=== PATIENT | female | born 1945 | race Caucasian/White ===

== ENCOUNTER → 2016-12-08 09:32 | Day surgery (SDC) | payer MEDICARE, OTHER ==
[~2016-12-08 09:32] MED LIST: Bacitracin OINTMENT* 0.5% 0.5 oz TUBE ONE; Buffered Lidocaine 1% SYR 3ML* 3 ML/SYR SYRINGE INTRADERM ONE; DiMENhydriNATE IV* 50 MG/ML VIAL IV PUSH PRN; HYDROcodone/ACETAMIN 5-325 MG* 1 TAB ONE; HYDROcodone/ACETAMIN 5-325 MG* 1 TAB PO PRN; HYDROmorphone INJ* 1 MG/ML CARPUJECT SYRINGE IV PRN; Lidocain 1% EPI 1:100,000 * 30 ML MDV ONE; Midazolam* 1 MG/ML 5 ML VIAL (5 MG) ONE; Ondansetron INJ* 2 MG/ML VIAL IV PRN; Propofol* 10 MG/ML 20 ML BTL IV PUSH ONE; ceFAZolin 2 GM PREMIX (*) 2 GM/50 ML BAG IVPB ONE; fentaNYL* 50 MCG/ML 2 ML VIAL (100 MCG VIAL) IV PRN; fentaNYL* 50 MCG/ML 2 ML VIAL (100 MCG VIAL) ONE; oxyCODONE TAB* 5 MG TAB PO PRN
[2016-12-08 13:17] VITALS: BP 131/44
== END | disposition home or self-care (01) ==
LOC: OREAST 09:32
PROVIDERS: ATTEND Plastic Surgery
DX: Z41.1 Encounter for cosmetic surgery (principal); I10 Essential (primary) hypertension; Z87.891 Personal history of nicotine dependence
CPT/HCPCS: A9270-GY; J0690; J2250; J2704; J3010

== ENCOUNTER 2017-06-01 06:27 | Day surgery (SDC) | payer MEDICARE ==
[~2017-06-01 06:27] MED LIST changes: -Bacitracin OINTMENT* 0.5% 0.5 oz TUBE ONE; +Buffered Lidocaine 0.9% SYRIN* 5 ML/SYR SYRINGE INTRADERM ONE; -Buffered Lidocaine 1% SYR 3ML* 3 ML/SYR SYRINGE INTRADERM ONE; -DiMENhydriNATE IV* 50 MG/ML VIAL IV PUSH PRN; -HYDROcodone/ACETAMIN 5-325 MG* 1 TAB ONE; -HYDROcodone/ACETAMIN 5-325 MG* 1 TAB PO PRN; -HYDROmorphone INJ* 1 MG/ML CARPUJECT SYRINGE IV PRN; -Lidocain 1% EPI 1:100,000 * 30 ML MDV ONE; -Midazolam* 1 MG/ML 5 ML VIAL (5 MG) ONE; -Ondansetron INJ* 2 MG/ML VIAL IV PRN; -Propofol* 10 MG/ML 20 ML BTL IV PUSH ONE; -ceFAZolin 2 GM PREMIX (*) 2 GM/50 ML BAG IVPB ONE; -fentaNYL* 50 MCG/ML 2 ML VIAL (100 MCG VIAL) IV PRN; -fentaNYL* 50 MCG/ML 2 ML VIAL (100 MCG VIAL) ONE; -oxyCODONE TAB* 5 MG TAB PO PRN
[2017-06-01] MEDS ORDERED: Ondansetron INJ* 2 MG/ML VIAL ONE (06:28)
[2017-06-01] MEDS ORDERED: Dexamethasone IV* 4 MG/ML 1 ML (4 MG) ONE (06:28)
[2017-06-01] MEDS ORDERED: ceFAZolin 2 GM PREMIX (*) 50 ML BAG (BBraun bag) IVPB ONE (06:29)
[2017-06-01] MEDS ORDERED: EPINEPHrine AMP 1 MG/ML ONE (07:19)
[2017-06-01] MEDS ORDERED: Lidocaine 2% PF* 10 ML AMP ONE (07:19)
[2017-06-01] MEDS ORDERED: Sodium Bicarbonate 8.4%* 50 ML SYRINGE ONE (07:19)
[2017-06-01] MEDS ORDERED: Lidocaine 1.5% EPI 1:200,000* 30 ML SDV ONE (07:26)
[2017-06-01] MEDS ORDERED: Midazolam* 1 MG/ML 5 ML VIAL (5 MG) ONE (07:43)
[2017-06-01] MEDS ORDERED: fentaNYL* 50 MCG/ML 2 ML VIAL (100 MCG VIAL) ONE (07:43)
[2017-06-01] MEDS ORDERED: Propofol* 10 MG/ML 20 ML BTL IV PUSH ONE ×2 (08:09→08:10)
[2017-06-01] MEDS ORDERED: Acetaminophen TAB* 325 MG PO PRN (08:24)
[2017-06-01] MEDS ORDERED: Ibuprofen TAB* 400 MG PO PRN (08:24)
[2017-06-01] MEDS ORDERED: BSS OPTH.SOL* BTL ONE (09:16)
[2017-06-01] MEDS ORDERED: HYDROcodone/ACETAMIN 5-325 MG* 1 TAB ONE (09:32)
[2017-06-01 09:45] VITALS: BP 154/71
== END 2017-06-01 09:52 | disposition home or self-care (01) ==
LOC: OREAST 06:27
PROVIDERS: ATTEND Plastic Surgery
DX: H02.403 Unspecified ptosis of bilateral eyelids (principal); I10 Essential (primary) hypertension; K21.9 Gastro-esophageal reflux disease without esophagitis; Z87.891 Personal history of nicotine dependence; M81.0 Age-related osteoporosis without current pathological fracture
CPT/HCPCS: A9270-GY; J0171; J0690; J1100; J2001; J2250; J2405; J2704; J3010

== ENCOUNTER 2020-08-29 12:29 | Inpatient (IN) ==
[2020-08-29] MEDS ORDERED: NS 0.9% 1000 ml BAG 1,000 ML IV ONE ×2 (12:51→14:29)
[2020-08-29 14:24] LABS: ABS Basophils 0.1 10^3/ul (0-0.2); ABS Lymphocytes 1.1 10^3/ul (1.0-4.8); ABS Monocytes 1.5 10^3/ul (0-0.8); ABS Neutrophils 14.5 10^3/ul (1.5-7.7); Eosinophil % 0.2 %; Hematocrit 43 % (35-47); Hemoglobin 13.9 g/dL (12.0-16.0); Lymphocyte % 6.2 %; Mean Corpuscular HGB Conc 33 g/dL (31-36); Mean Corpuscular Hemoglobin 30 pg (27-31); Mean Corpuscular Volume 90 fL (80-97); Mean Platelet Volume 8.4 fL (7.4-10.4); Platelet Count 457 10^3/uL (150-450); Red Blood Count 4.71 10^6 /uL (3.70-4.87); Red Cell Distribution Width 15 % (10-15); White Blood Count 17.2 10^3/uL (3.5-10.8)
[2020-08-29] MEDS ORDERED: cefTRIAXone 1 gm/50 mL NS BAG 1 GM/50 ML BAG IV ONE (14:29)
[2020-08-29 14:42] LABS: ALT 31 U/L (7-52); AST 53 U/L (13-39); Albumin 4.8 g/dL (3.2-5.2); Albumin/Globulin Ratio 1.7 (1-3); Alcohol, S < 10 mg/dL (<10); Alkaline Phosphatase 118 U/L (34-104); Anion Gap 12 mmol/L (2-11); BUN/Creatinine Ratio 34.2 (8-20); Blood Urea Nitrogen 41 mg/dL (6-24); CO2 Carbon Dioxide 21 mmol/L (22-32); Calcium 10.2 mg/dL (8.6-10.3); Chloride 107 mmol/L (101-111); Creatine Kinase 1072 U/L (10-223); EGFR Non-African American 43.8 (>60); Globulin 2.8 g/dL (2-4); Glucose 107 mg/dL (70-100); Magnesium 2.4 mg/dL (1.9-2.7); Potassium 4.5 mmol/L (3.5-5.0); Sodium 140 mmol/L (135-145); Total Protein 7.6 g/dL (6.4-8.9)
[2020-08-29 14:55] LABS: Troponin I 0.46 ng/mL (<0.03)
[2020-08-29 14:56] LABS: TSH Ultra Thyroid Stim Horm 0.18 mcIU/mL (0.34-5.60)
[2020-08-29 17:16] LABS: Urine Appearance Clear; Urine Bilirubin Negative (Negative); Urine Blood 1+ (Negative); Urine Color Yellow; Urine Glucose Negative (Negative); Urine Ketones Trace (Negative); Urine Nitrite Negative (Negative); Urine Protein 1+(30 mg/dL) (Negative); Urine Specific Gravity 1.011 (1.010-1.030); Urine Urobilinogen Negative (Negative)
[2020-08-29 17:21] LABS: Urine Bacteria Absent (Absent); Urine Red Blood Cell Trace(0-2/hpf) (Absent); Urine White Blood Cell Absent (Absent)
[2020-08-29 18:16] LABS: Troponin I 0.69 ng/mL (<0.03)
[2020-08-29] MEDS ORDERED: Lidocaine 1% MPF 5 ML VIAL INJ ONE (19:36)
[2020-08-29] MEDS ORDERED: Lidocaine 1% VIAL 10 MG/ML VIAL ONE (19:47)
[2020-08-29 21:42] LABS: Body Fluid Source Cerebral Spinal
[2020-08-29 21:55] LABS: CSF Glucose 73 mg/dL (40-70)
[2020-08-29] MEDS ORDERED: Heparin 5000 UNITS/ML 1 mL VIAL SUBCUT SCH (22:00)
[2020-08-29 22:58] LABS: Body Fluid Mono 48 %
[2020-08-29 23:40] LABS: Troponin I 0.52 ng/mL (<0.03)
[2020-08-30 00:02] LABS: Hepatitis B Surface Antigen Nonreactive (Nonreactive)
[2020-08-30 00:07] LABS: Hepatitis A Ab IgM Negative (Negative)
[2020-08-30 00:08] LABS: Hepatitis B Core IgM Nonreactive (Nonreactive)
[2020-08-30 00:20] LABS: Hepatitis C Antibody Negative (Negative)
[2020-08-30] MEDS: Acyclovir IV 540 MG in NS 0.9% 100 ml BAG 100 ML IVPB SCH ×2 (00:26→08:40)
[2020-08-30] MEDS: NS 0.9% 1000 ml BAG 1,000 ML IV SCH ×2 (00:31→08:42)
[2020-08-30 03:22] LABS: ABS Basophils 0.1 10^3/ul (0-0.2); ABS Lymphocytes 1.2 10^3/ul (1.0-4.8); ABS Monocytes 0.8 10^3/ul (0-0.8); ABS Neutrophils 9.1 10^3/ul (1.5-7.7); Eosinophil % 0.1 %; Hematocrit 33 % (35-47); Lymphocyte % 10.4 %; Mean Corpuscular HGB Conc 33 g/dL (31-36); Mean Corpuscular Hemoglobin 30 pg (27-31); Mean Corpuscular Volume 90 fL (80-97); Mean Platelet Volume 8.2 fL (7.4-10.4); Platelet Count 346 10^3/uL (150-450); Red Cell Distribution Width 15 % (10-15); White Blood Count 11.2 10^3/uL (3.5-10.8)
[2020-08-30 03:39] LABS: ALT 32 U/L (7-52); AST 53 U/L (13-39); Albumin 3.9 g/dL (3.2-5.2); Albumin/Globulin Ratio 1.7 (1-3); Alkaline Phosphatase 95 U/L (34-104); Anion Gap 6 mmol/L (2-11); Blood Urea Nitrogen 32 mg/dL (6-24); CO2 Carbon Dioxide 24 mmol/L (22-32); Calcium 8.6 mg/dL (8.6-10.3); Chloride 109 mmol/L (101-111); Creatine Kinase 831 U/L (10-223); EGFR African American 70.2 (>60); EGFR Non-African American 58.1 (>60); Globulin 2.3 g/dL (2-4); Glucose 124 mg/dL (70-100); Indirect Bilirubin 0.3 mg/dL (0.3-1.0); Potassium 3.4 mmol/L (3.5-5.0); Sodium 139 mmol/L (135-145); Total Protein 6.2 g/dL (6.4-8.9)
[2020-08-30 03:45] LABS: Troponin I 0.42 ng/mL (<0.03)
[2020-08-30 05:35] LABS: Urine Appearance Clear; Urine Bilirubin Negative (Negative); Urine Blood Negative (Negative); Urine Color Yellow; Urine Glucose Negative (Negative); Urine Ketones Negative (Negative); Urine Nitrite Negative (Negative); Urine Protein Negative (Negative); Urine Specific Gravity 1.012 (1.010-1.030); Urine Urobilinogen Negative (Negative)
[2020-08-30 05:44] LABS: Urine Bacteria Absent (Absent); Urine Red Blood Cell Trace(0-2/hpf) (Absent); Urine White Blood Cell Trace(0-5/hpf) (Absent)
[2020-08-30 05:54] LABS: Urine Benzodiazepine Screen None Detected (None Detect); Urine Cannabinoids Screen None Detected (None Detect); Urine Opiates Screen None Detected (None Detect)
[2020-08-30 09:05] LABS: C Reactive Protein 12.86 mg/L (<8.01)
[2020-08-30 09:32] LABS: Folate 16.14 ng/mL (>3.99)
[2020-08-30 09:34] LABS: Vitamin B12 448 pg/mL (180-914)
[2020-08-30] MEDS ORDERED: NS 0.9% IVPB SCH (14:15)
[2020-08-30] MEDS ORDERED: ACYCLOVIR IVPB SCH (14:15)
[2020-08-30] MEDS ORDERED: cefTRIAXone 1 gm/50 mL NS BAG 1 GM/50 ML BAG IVPB SCH (16:00)
[2020-08-30 16:06] LABS: Free T4 0.79 ng/dL (0.61-1.12)
[2020-08-30] MEDS ORDERED: NS 0.9% 1000 ml BAG 1,000 ML IV SCH (17:03)
[2020-08-30] MEDS: Enoxaparin 40 MG/0.4 ML SYR SUBCUT SCH (20:10)
[2020-08-30] MEDS: ACYCLOVIR IVPB SCH (20:11)
[2020-08-30] MEDS: NS 0.9% IVPB SCH (20:11)
[2020-08-31 07:06] LABS: Hematocrit 34 % (35-47); Hemoglobin 11.7 g/dL (12.0-16.0); Mean Corpuscular HGB Conc 34 g/dL (31-36); Mean Corpuscular Hemoglobin 31 pg (27-31); Mean Corpuscular Volume 90 fL (80-97); Mean Platelet Volume 8.2 fL (7.4-10.4); Platelet Count 319 10^3/uL (150-450); Red Blood Count 3.84 10^6 /uL (3.70-4.87); Red Cell Distribution Width 15 % (10-15); White Blood Count 8.1 10^3/uL (3.5-10.8)
[2020-08-31 07:25] LABS: BUN/Creatinine Ratio 28.6 (8-20); EGFR African American 88.4 (>60); EGFR Non-African American 73.1 (>60); Magnesium 1.9 mg/dL (1.9-2.7); Potassium 3.2 mmol/L (3.5-5.0)
[2020-08-31] MEDS: NS 0.9% IVPB SCH ×2 (08:31→19:42)
[2020-08-31] MEDS: ACYCLOVIR IVPB SCH ×2 (08:31→19:42)
[2020-08-31] MEDS: cefTRIAXone 2 GM ADDV.VIAL 2 GM in NS 0.9% 100 ml BAG 100 ML IV SCH (16:37)
[2020-08-31] MEDS: Enoxaparin 40 MG/0.4 ML SYR SUBCUT SCH (19:59)
[2020-08-31] MEDS ORDERED: Thiamine 100 MG/ML 2 ml VIAL (200 mg) IV SCH ×2 (21:00)
[2020-09-01] MEDS: Thiamine IV 500 MG in NS 0.9% 250 ML (Wernicke-Korsakoff) IV SCH ×4 (00:45→21:11)
[2020-09-01 07:20] LABS: BUN/Creatinine Ratio 22.1 (8-20); Calcium 8.8 mg/dL (8.6-10.3); EGFR African American 88.4 (>60); EGFR Non-African American 73.1 (>60); Potassium 3.2 mmol/L (3.5-5.0)
[2020-09-01] MEDS: NS 0.9% IVPB SCH ×2 (08:19→19:29)
[2020-09-01] MEDS: ACYCLOVIR IVPB SCH ×2 (08:19→19:29)
[2020-09-01 15:16] LABS: CSF VDRL Negative (Negative)
[2020-09-01] MEDS: cefTRIAXone 2 GM ADDV.VIAL 2 GM in NS 0.9% 100 ml BAG 100 ML IV SCH (17:33)
[2020-09-01] MEDS: Enoxaparin 40 MG/0.4 ML SYR SUBCUT SCH (19:31)
[2020-09-02] MEDS: Thiamine IV 500 MG in NS 0.9% 250 ML (Wernicke-Korsakoff) IV SCH ×3 (05:22→22:18)
[2020-09-02 08:03] LABS: BUN/Creatinine Ratio 22.1 (8-20); Calcium 8.8 mg/dL (8.6-10.3); EGFR African American 102.1 (>60); EGFR Non-African American 84.4 (>60); Potassium 3.1 mmol/L (3.5-5.0)
[2020-09-02] MEDS: NS 0.9% IVPB SCH ×2 (08:23→19:55)
[2020-09-02] MEDS: ACYCLOVIR IVPB SCH ×2 (08:23→19:55)
[2020-09-02] MEDS: KCL 20 MEQ/100 ML IVPREMIX 20 MEQ/100 ML BAG IV SCH ×2 (10:39→13:04)
[2020-09-02 13:45] LABS: HSV 1 PCR, CSF Negative (Negative); HSV 2 PCR, CSF Negative (Negative)
[2020-09-02] MEDS: cefTRIAXone 2 GM ADDV.VIAL 2 GM in NS 0.9% 100 ml BAG 100 ML IV SCH (15:59)
[2020-09-02] MEDS: Enoxaparin 40 MG/0.4 ML SYR SUBCUT SCH (20:01)
[2020-09-03 07:20] LABS: BUN/Creatinine Ratio 20.9 (8-20); Calcium 9.5 mg/dL (8.6-10.3); EGFR African American 103.8 (>60); EGFR Non-African American 85.8 (>60); Potassium 3.3 mmol/L (3.5-5.0)
[2020-09-03] MEDS ORDERED: Potassium Chlor 20 meq TAB.ER PO ONE (08:00)
[2020-09-03] MEDS: ACYCLOVIR IVPB SCH ×2 (09:11→20:28)
[2020-09-03] MEDS: NS 0.9% IVPB SCH ×2 (09:11→20:28)
[2020-09-03] MEDS: cefTRIAXone 2 GM ADDV.VIAL 2 GM in NS 0.9% 100 ml BAG 100 ML IV SCH (15:36)
[2020-09-03] MEDS: Enoxaparin 40 MG/0.4 ML SYR SUBCUT SCH (20:28)
[2020-09-04] MEDS ORDERED: Ondansetron ODT 4 mg TAB 4 MG TAB SL PRN (00:48)
[2020-09-04 06:14] LABS: ABS Eosinophils 0.1 10^3/ul (0-0.6); ABS Lymphocytes 1.2 10^3/ul (1.0-4.8); ABS Monocytes 0.4 10^3/ul (0-0.8); ABS Neutrophils 5.5 10^3/ul (1.5-7.7); Eosinophil % 1.2 %; Hematocrit 35 % (35-47); Hemoglobin 11.9 g/dL (12.0-16.0); Lymphocyte % 16.2 %; Mean Corpuscular HGB Conc 34 g/dL (31-36); Mean Corpuscular Hemoglobin 30 pg (27-31); Mean Corpuscular Volume 90 fL (80-97); Mean Platelet Volume 8.1 fL (7.4-10.4); Platelet Count 371 10^3/uL (150-450); Red Blood Count 3.95 10^6 /uL (3.70-4.87); Red Cell Distribution Width 14 % (10-15); White Blood Count 7.2 10^3/uL (3.5-10.8)
[2020-09-04 06:38] LABS: BUN/Creatinine Ratio 23.5 (8-20); Calcium 9.8 mg/dL (8.6-10.3); EGFR African American 78.9 (>60); EGFR Non-African American 65.2 (>60); Potassium 3.5 mmol/L (3.5-5.0)
[2020-09-04] MEDS: ACYCLOVIR IVPB SCH ×2 (09:49→20:53)
[2020-09-04] MEDS: NS 0.9% IVPB SCH ×2 (09:49→20:53)
[2020-09-04] MEDS: cefTRIAXone 2 GM ADDV.VIAL 2 GM in NS 0.9% 100 ml BAG 100 ML IV SCH (16:00)
[2020-09-04] MEDS: Enoxaparin 40 MG/0.4 ML SYR SUBCUT SCH (20:53)
[2020-09-05 08:08] LABS: Free T3 3.2 pg/mL (2.5-3.9)
[2020-09-05] MEDS: cefTRIAXone 2 GM ADDV.VIAL 2 GM in NS 0.9% 100 ml BAG 100 ML IV SCH (15:58)
[2020-09-05] MEDS: Enoxaparin 40 MG/0.4 ML SYR SUBCUT SCH (19:53)
[2020-09-06 07:02] LABS: BUN/Creatinine Ratio 26.3 (8-20); Calcium 9.3 mg/dL (8.6-10.3); EGFR African American 84.6 (>60); EGFR Non-African American 69.9 (>60); Potassium 4.1 mmol/L (3.5-5.0)
[2020-09-06] MEDS: Enoxaparin 40 MG/0.4 ML SYR SUBCUT SCH (20:08)
[2020-09-07 16:06] VITALS: BP 155/58
== END 2020-09-07 16:05 | disposition home or self-care (01) | DRG 92 ==
LOC: ED 12:29 → MEDTELE 17:21
PROVIDERS: ADMIT Internal Medicine; ATTEND Internal Medicine

== ENCOUNTER 2021-02-02 19:28 | Inpatient (IN) ==
[2021-02-02] MEDS ORDERED: NS 0.9% 1000 ml BAG 1,000 ML IV ONE (20:08)
[2021-02-02 20:45] LABS: ABS Basophils 0.1 10^3/ul (0-0.2); ABS Eosinophils 0.1 10^3/ul (0-0.6); ABS Lymphocytes 1.3 10^3/ul (1.0-4.8); ABS Monocytes 0.7 10^3/ul (0-0.8); ABS Neutrophils 6.8 10^3/ul (1.5-7.7); Eosinophil % 0.8 %; Hematocrit 35 % (35-47); Hemoglobin 11.8 g/dL (12.0-16.0); Lymphocyte % 14.7 %; Mean Corpuscular HGB Conc 34 g/dL (31-36); Mean Corpuscular Hemoglobin 29 pg (27-31); Mean Corpuscular Volume 85 fL (80-97); Mean Platelet Volume 7.5 fL (7.4-10.4); Platelet Count 417 10^3/uL (150-450); Red Cell Distribution Width 14 % (10-15)
[2021-02-02 21:04] LABS: Troponin I 0.01 ng/mL (<0.03)
[2021-02-02 21:23] LABS: ALT 22 U/L (7-52); AST 27 U/L (13-39); Albumin 4.7 g/dL (3.2-5.2); Albumin/Globulin Ratio 1.9 (1-3); Alkaline Phosphatase 93 U/L (34-104); Anion Gap 10 mmol/L (2-11); BUN/Creatinine Ratio 29.7 (8-20); Blood Urea Nitrogen 58 mg/dL (6-24); CO2 Carbon Dioxide 20 mmol/L (22-32); Chloride 104 mmol/L (101-111); Creatine Kinase 167 U/L (10-223); EGFR African American 30.2 (>60); EGFR Non-African American 24.9 (>60); Globulin 2.5 g/dL (2-4); Glucose 123 mg/dL (70-100); Potassium 3.9 mmol/L (3.5-5.0); Sodium 134 mmol/L (135-145); Total Protein 7.2 g/dL (6.4-8.9)
[2021-02-02 21:25] LABS: Acetaminophen < 15 mcg/mL; Alcohol, S < 10 mg/dL (<10); Salicylate < 2.50 mg/dL (<30)
[2021-02-02 22:04] LABS: Urine Appearance Clear; Urine Bilirubin Negative (Negative); Urine Blood Negative (Negative); Urine Color Yellow; Urine Glucose Negative (Negative); Urine Ketones Negative (Negative); Urine Nitrite Negative (Negative); Urine Protein Negative (Negative); Urine Specific Gravity 1.011 (1.002-1.030); Urine Urobilinogen Negative (Negative)
[2021-02-02 22:13] LABS: Urine Bacteria Absent (Absent); Urine Red Blood Cell Trace(0-2/hpf) (Absent); Urine Squamous Epithelial Cell Present (Absent); Urine White Blood Cell Trace(0-5/hpf) (Absent)
[2021-02-03 00:35] LABS: Erythrocyte Sed Rate 31 mm/Hr (0-29)
[2021-02-03 07:01] LABS: Urine Creatinine Concentration 58.47 mg/dL
[2021-02-03 07:03] LABS: Urine Benzodiazepine Screen None Detected (None Detect); Urine Cannabinoids Screen None Detected (None Detect); Urine Opiates Screen None Detected (None Detect)
[2021-02-03] MEDS: Fluticasone NASAL SPRAY 50MCG 16 gm SPRAY BTL INTRANASAL SCH (09:25)
[2021-02-03] MEDS: Heparin 5000 UNITS/ML 1 mL VIAL SUBCUT SCH ×3 (09:26→23:20)
[2021-02-03 10:43] LABS: BUN/Creatinine Ratio 32.1 (8-20); Calcium 9.2 mg/dL (8.6-10.3); EGFR African American 44.2 (>60); EGFR Non-African American 36.6 (>60); Potassium 3.9 mmol/L (3.5-5.0)
[2021-02-03] MEDS ORDERED: Senna TAB 8.6 mg TAB PO PRN (23:05)
[2021-02-03] MEDS ORDERED: Magnesium Hydroxide LIQ 30 ML UDC PO PRN (23:05)
[2021-02-03] MEDS: Lactated Ringers 1000 ml BAG 1,000 ML IV SCH (23:13)
[2021-02-04] MEDS: Heparin 5000 UNITS/ML 1 mL VIAL SUBCUT SCH ×2 (08:57→14:55)
[2021-02-04] MEDS: Lactated Ringers 1000 ml BAG 1,000 ML IV SCH (08:57)
[2021-02-04] MEDS ORDERED: Polyethylene Glycol 3350 17 GM PACKET PO PRN (09:00)
[2021-02-04 10:02] LABS: Calcium 9.3 mg/dL (8.6-10.3); EGFR African American 59.7 (>60); EGFR Non-African American 49.3 (>60); Potassium 4.1 mmol/L (3.5-5.0)
[2021-02-04] MEDS: Fluticasone NASAL SPRAY 50MCG 16 gm SPRAY BTL INTRANASAL SCH (11:40)
[2021-02-04] MEDS ORDERED: Lactated Ringers 1000 ml BAG 1,000 ML IV SCH (14:00)
[2021-02-05] MEDS: Heparin 5000 UNITS/ML 1 mL VIAL SUBCUT SCH ×2 (00:25→09:50)
[2021-02-05 06:46] LABS: BUN/Creatinine Ratio 22.2 (8-20); Calcium 9.2 mg/dL (8.6-10.3); EGFR African American 73.7 (>60); EGFR Non-African American 60.9 (>60); Potassium 4.3 mmol/L (3.5-5.0)
[2021-02-05] MEDS: Fluticasone NASAL SPRAY 50MCG 16 gm SPRAY BTL INTRANASAL SCH (09:50)
[2021-02-05 19:46] VITALS: BP 148/60
== END 2021-02-05 16:50 | disposition home or self-care (01) | DRG 896 ==
LOC: ED 19:28 → MED 19:28
PROVIDERS: ADMIT Internal Medicine; ATTEND Internal Medicine

== ENCOUNTER 2023-08-22 15:38 | Inpatient (IN) ==
[2023-08-22 16:39] LABS: ABS Basophils 0.1 10^3/uL (0.0-0.1); ABS Lymphocytes 0.7 10^3/uL (1.0-4.8); ABS Monocytes 0.4 10^3/uL (0.0-0.9); ABS Neutrophils 10.3 10^3/uL (1.5-7.6); Eosinophil % 0.1 %; Hematocrit 33.1 % (35-45); Hemoglobin 10.9 g/dL (11.5-14.3); Lymphocyte % 5.9 %; Mean Corpuscular Hemoglobin 29.2 pg (27-33); Mean Corpuscular Volume 88.4 fL (80-97); Mean Platelet Volume 7.7 fL (7.5-11.2); Platelet Count 326 10^3/uL (150-450); Red Blood Count 3.75 10^6/uL (3.63-4.92); Red Cell Distribution Width 14.3 % (12-17); White Blood Count 11.5 10^3/uL (3.8-11.8)
[2023-08-22 17:38] LABS: Albumin 4.2 g/dL (3.2-5.2); Calcium 9.2 mg/dL (8.6-10.3); Potassium 4.7 mmol/L (3.5-5.0); Total Bilirubin 0.4 mg/dL (0.2-1.0)
[2023-08-22 17:44] LABS: Albumin/Globulin Ratio 1.6 (1-3); Creatinine, Serum 1.14 mg/dL (0.51-0.95); Globulin 2.6 g/dL (2-4); Total Protein 6.8 g/dL (6.4-8.9); eGFR CKD-EPI 49.3 (>60)
[2023-08-22] MEDS ORDERED: Heparin 5000 UNITS/ML 1 mL VIAL SUBCUT ONE (19:09)
[2023-08-22] MEDS: Morphine 2 MG/ML SYRINGE IV PRN ×2 (19:31→23:29)
[2023-08-22] MEDS: NS 0.9% 1000 ml BAG 1,000 ML IV SCH (19:41)
[2023-08-22] MEDS: Acetaminophen IV 1 GM/100ML 650 MG/65 ML BAG IV SCH (20:17)
[2023-08-23] MEDS: Acetaminophen IV 1 GM/100ML 650 MG/65 ML BAG IV SCH ×3 (06:01→21:08)
[2023-08-23 07:19] LABS: ABS Basophils 0.1 10^3/uL (0.0-0.1); ABS Lymphocytes 1.3 10^3/uL (1.0-4.8); ABS Monocytes 0.8 10^3/uL (0.0-0.9); ABS Neutrophils 7.4 10^3/uL (1.5-7.6); ABS Nucleated RBC 0.01 10^3/ul; Eosinophil % 0.4 %; Hematocrit 31.2 % (35-45); Hemoglobin 10.5 g/dL (11.5-14.3); Lymphocyte % 13.8 %; Mean Corpuscular Hemoglobin 29.6 pg (27-33); Mean Corpuscular Hgb Conc 33.5 g/dL (31-36); Mean Corpuscular Volume 88.1 fL (80-97); Mean Platelet Volume 7.5 fL (7.5-11.2); Nucleated Red Blood Cells % 0.1 %/100WBC (0.0-0.8); Platelet Count 277 10^3/uL (150-450); Red Blood Count 3.54 10^6/uL (3.63-4.92); Red Cell Distribution Width 14.6 % (12-17); White Blood Count 9.6 10^3/uL (3.8-11.8)
[2023-08-23] MEDS: NS 0.9% 1000 ml BAG 1,000 ML IV SCH ×2 (07:55→15:46)
[2023-08-23 08:23] LABS: Calcium 8.3 mg/dL (8.6-10.3); Creatinine, Serum 1.06 mg/dL (0.51-0.95); Potassium 4.3 mmol/L (3.5-5.0); eGFR CKD-EPI 53.8 (>60)
[2023-08-23 10:47] LABS: TSH Ultra Thyroid Stim Horm 0.25 mcIU/mL (0.34-5.60)
[2023-08-23 10:48] LABS: Free T3 2.69 pg/mL (2.5-3.9)
[2023-08-23 10:49] LABS: Free T4 0.76 ng/dL (0.61-1.12)
[2023-08-23] MEDS: Morphine 2 MG/ML SYRINGE IV PRN (10:49)
[2023-08-23] MEDS ORDERED: Bupivacaine 0.5% SDV PF 30ML VIAL ONE (11:55)
[2023-08-23] MEDS ORDERED: Naloxone 0.4 mg VIAL 0.4 mg/ml 1 ml VIAL IV PRN (12:25)
[2023-08-23] MEDS ORDERED: ceFAZolin 2 GM in NS PREMIX 2 GM/100 ML BAG IVPB ONE (12:27)
[2023-08-23] MEDS ORDERED: Midazolam 2 mg/2 ml VIAL 1 mg/ml 2 ml VIAL (2 mg) ONE (12:52)
[2023-08-23] MEDS ORDERED: Famotidine IV 10 MG/ML 2 ml VIAL (20 mg) ONE (12:52)
[2023-08-23] MEDS ORDERED: Lidocaine 2% PF 5 ML VIAL ONE (13:01)
[2023-08-23] MEDS ORDERED: fentaNYL 100 mcg/2 ml 50 MCG/ML VIAL ONE ×2 (13:02→14:17)
[2023-08-23] MEDS ORDERED: Rocuronium 50 mg VIAL 10 mg/ml 5 ml VIAL (50 mg) ONE (13:02)
[2023-08-23] MEDS ORDERED: Propofol 10 MG/ML 20 ML BTL ONE (13:02)
[2023-08-23] MEDS ORDERED: Acetaminophen IV 1 GM/100ML 1,000 MG/100 ML BAG IV ONE (13:21)
[2023-08-23] MEDS: fentaNYL 100 mcg/2 ml 50 MCG/ML VIAL IV PRN ×3 (14:20→14:31)
[2023-08-23] MEDS ORDERED: Morphine 4 MG/ML VIAL (1 ml) ONE (14:55)
[2023-08-23] MEDS ORDERED: Morphine 2 MG/ML SYRINGE IV ONE (14:57)
[2023-08-23 17:29] LABS: Hematocrit 31.1 % (35-45); Hemoglobin 10.2 g/dL (11.5-14.3)
[2023-08-23] MEDS: ceFAZolin 1 GM X 3 DOSES POST-OP Q8H (AddVan) IVPB SCH (22:39)
[2023-08-24] MEDS: NS 0.9% 1000 ml BAG 1,000 ML IV SCH ×3 (01:48→23:21)
[2023-08-24] MEDS: Acetaminophen IV 1 GM/100ML 650 MG/65 ML BAG IV SCH ×3 (04:10→20:16)
[2023-08-24] MEDS: ceFAZolin 1 GM X 3 DOSES POST-OP Q8H (AddVan) IVPB SCH ×2 (04:58→12:35)
[2023-08-24 09:03] LABS: ABS Basophils 0.1 10^3/uL (0.0-0.1); ABS Eosinophils 0.1 10^3/uL (0.0-0.5); ABS Lymphocytes 1.3 10^3/uL (1.0-4.8); ABS Monocytes 0.7 10^3/uL (0.0-0.9); ABS Neutrophils 6.4 10^3/uL (1.5-7.6); Eosinophil % 1.1 %; Hematocrit 26.4 % (35-45); Hemoglobin 8.8 g/dL (11.5-14.3); Lymphocyte % 15.4 %; Mean Corpuscular Hemoglobin 29.9 pg (27-33); Mean Corpuscular Hgb Conc 33.5 g/dL (31-36); Mean Corpuscular Volume 89.3 fL (80-97); Mean Platelet Volume 7.5 fL (7.5-11.2); Platelet Count 255 10^3/uL (150-450); Red Blood Count 2.96 10^6/uL (3.63-4.92); Red Cell Distribution Width 14.9 % (12-17); White Blood Count 8.6 10^3/uL (3.8-11.8)
[2023-08-24] MEDS: Magnesium Hydroxide LIQ 30 ML UDC PO PRN (09:11)
[2023-08-24] MEDS: Polyethylene Glycol 3350 17 GM PACKET PO PRN (09:17)
[2023-08-24] MEDS: Enoxaparin 40 MG/0.4 ML SYR SUBCUT SCH (10:48)
[2023-08-24] MEDS ORDERED: Enoxaparin 40 MG/0.4 ML SYR SUBCUT SCH (11:00)
[2023-08-24 11:58] LABS: Calcium 7.8 mg/dL (8.6-10.3); Creatinine, Serum 0.87 mg/dL (0.51-0.95); eGFR CKD-EPI 68.2 (>60)
[2023-08-25] MEDS: Acetaminophen IV 1 GM/100ML 650 MG/65 ML BAG IV SCH (04:54)
[2023-08-25 06:09] LABS: ABS Eosinophils 0.1 10^3/uL (0.0-0.5); ABS Lymphocytes 0.9 10^3/uL (1.0-4.8); ABS Monocytes 0.7 10^3/uL (0.0-0.9); ABS Neutrophils 7.5 10^3/uL (1.5-7.6); Eosinophil % 0.9 %; Hematocrit 27.3 % (35-45); Hemoglobin 9.1 g/dL (11.5-14.3); Lymphocyte % 9.7 %; Mean Corpuscular Hemoglobin 29.6 pg (27-33); Mean Corpuscular Hgb Conc 33.5 g/dL (31-36); Mean Corpuscular Volume 88.5 fL (80-97); Mean Platelet Volume 8.1 fL (7.5-11.2); Platelet Count 259 10^3/uL (150-450); Red Blood Count 3.08 10^6/uL (3.63-4.92); Red Cell Distribution Width 14.5 % (12-17); White Blood Count 9.2 10^3/uL (3.8-11.8)
[2023-08-25 06:32] LABS: Calcium 7.4 mg/dL (8.6-10.3); Creatinine, Serum 0.71 mg/dL (0.51-0.95); Magnesium 1.9 mg/dL (1.9-2.7); Potassium 3.9 mmol/L (3.5-5.0)
[2023-08-25] MEDS: Magnesium Hydroxide LIQ 30 ML UDC PO PRN (08:34)
[2023-08-25] MEDS: Senna TAB 8.6 mg TAB PO PRN (08:34)
[2023-08-25] MEDS: Polyethylene Glycol 3350 17 GM PACKET PO PRN (08:34)
[2023-08-25] MEDS: Enoxaparin 40 MG/0.4 ML SYR SUBCUT SCH (12:25)
[2023-08-25 14:42] LABS: Calcium 7.6 mg/dL (8.6-10.3); Creatinine, Serum 0.83 mg/dL (0.51-0.95); Potassium 3.8 mmol/L (3.5-5.0); eGFR CKD-EPI 72.1 (>60)
[2023-08-26 05:39] LABS: ABS Basophils 0.1 10^3/uL (0.0-0.1); ABS Monocytes 0.7 10^3/uL (0.0-0.9); ABS Neutrophils 8.9 10^3/uL (1.5-7.6); ABS Nucleated RBC 0.01 10^3/ul; Eosinophil % 0.2 %; Hematocrit 25.2 % (35-45); Hemoglobin 8.4 g/dL (11.5-14.3); Lymphocyte % 9.4 %; Mean Corpuscular Hemoglobin 29.7 pg (27-33); Mean Corpuscular Hgb Conc 33.5 g/dL (31-36); Mean Corpuscular Volume 88.8 fL (80-97); Mean Platelet Volume 7.6 fL (7.5-11.2); Platelet Count 309 10^3/uL (150-450); Red Blood Count 2.84 10^6/uL (3.63-4.92); Red Cell Distribution Width 14.9 % (12-17); White Blood Count 10.7 10^3/uL (3.8-11.8)
[2023-08-26 05:55] LABS: Calcium 8.2 mg/dL (8.6-10.3); Magnesium 2.2 mg/dL (1.9-2.7); Potassium 4.9 mmol/L (3.5-5.0)
[2023-08-26 06:01] LABS: Creatinine, Serum 0.72 mg/dL (0.51-0.95); eGFR CKD-EPI 85.5 (>60)
[2023-08-26] MEDS: Ondansetron 4 mg VIAL 2 MG/ML 2 ml VIAL IV PRN (08:41)
[2023-08-26] MEDS: Polyethylene Glycol 3350 17 GM PACKET PO PRN (09:17)
[2023-08-26] MEDS: Magnesium Hydroxide LIQ 30 ML UDC PO PRN ×2 (09:18→17:21)
[2023-08-26] MEDS: Senna TAB 8.6 mg TAB PO PRN (09:19)
[2023-08-26] MEDS: Enoxaparin 40 MG/0.4 ML SYR SUBCUT SCH (11:22)
[2023-08-26] MEDS ORDERED: Iohexol 350 (CONTRAST) 500 ML MDV IV ONE (13:11)
[2023-08-26] MEDS: cefTRIAXone 1 gm/50 mL D5W 1 GM/50 ML BAG IV SCH (17:14)
[2023-08-26] MEDS: Enoxaparin 60 MG/0.6 ML SYR SUBCUT SCH (21:39)
[2023-08-27 09:03] LABS: Hematocrit 27.4 % (35-45); Mean Corpuscular Hemoglobin 29.5 pg (27-33); Mean Corpuscular Hgb Conc 32.9 g/dL (31-36); Mean Corpuscular Volume 89.7 fL (80-97); Mean Platelet Volume 7.5 fL (7.5-11.2); Platelet Count 394 10^3/uL (150-450); Red Blood Count 3.05 10^6/uL (3.63-4.92); Red Cell Distribution Width 15.1 % (12-17); White Blood Count 14.1 10^3/uL (3.8-11.8)
[2023-08-27 09:29] LABS: Calcium 8.2 mg/dL (8.6-10.3); Creatinine, Serum 0.61 mg/dL (0.51-0.95); Magnesium 2.2 mg/dL (1.9-2.7); eGFR CKD-EPI 91.5 (>60)
[2023-08-27] MEDS ORDERED: Iohexol 350 (CONTRAST) 500 ML MDV IV ONE (10:53)
[2023-08-27] MEDS: Enoxaparin 60 MG/0.6 ML SYR SUBCUT SCH (10:54)
[2023-08-27 15:14] LABS: Hematocrit 25.7 % (35-45); Hemoglobin 8.4 g/dL (11.5-14.3); Mean Corpuscular Hgb Conc 32.6 g/dL (31-36); Mean Corpuscular Volume 89.1 fL (80-97); Mean Platelet Volume 7.5 fL (7.5-11.2); Platelet Count 431 10^3/uL (150-450); Red Blood Count 2.88 10^6/uL (3.63-4.92); White Blood Count 18.8 10^3/uL (3.8-11.8)
[2023-08-27 15:25] LABS: Albumin 3.4 g/dL (3.2-5.2); Calcium 7.8 mg/dL (8.6-10.3); Potassium 4.2 mmol/L (3.5-5.0); Total Bilirubin 0.6 mg/dL (0.2-1.0)
[2023-08-27 15:31] LABS: Albumin/Globulin Ratio 1.4 (1-3); C Reactive Protein 85.3 mg/L (<8.01); Creatinine, Serum 0.67 mg/dL (0.51-0.95); Globulin 2.5 g/dL (2-4); Total Protein 5.9 g/dL (6.4-8.9); eGFR CKD-EPI 89.4 (>60)
[2023-08-27 15:46] LABS: ABS Monocytes 1.6 10^3/uL (0.0-0.9); ABS Neutrophils 16.2 10^3/uL (1.5-7.6); ABS Nucleated RBC 0.01 10^3/ul; Lymphocyte % 5.5 %
[2023-08-27] MEDS: cefTRIAXone 1 gm/50 mL D5W 1 GM/50 ML BAG IV SCH (18:16)
[2023-08-27] MEDS: Ondansetron 4 mg VIAL 2 MG/ML 2 ml VIAL IV PRN (19:11)
[2023-08-27] MEDS: Morphine 2 MG/ML SYRINGE IV PRN (20:07)
[2023-08-28] MEDS: Morphine 2 MG/ML SYRINGE IV PRN ×3 (02:40→17:11)
[2023-08-28 05:29] LABS: ABS Basophils 0.1 10^3/uL (0.0-0.1); ABS Eosinophils 0.1 10^3/uL (0.0-0.5); ABS Monocytes 1.2 10^3/uL (0.0-0.9); ABS Neutrophils 10.8 10^3/uL (1.5-7.6); Eosinophil % 0.7 %; Hematocrit 22.2 % (35-45); Hemoglobin 7.3 g/dL (11.5-14.3); Lymphocyte % 7.7 %; Mean Corpuscular Hemoglobin 29.1 pg (27-33); Mean Corpuscular Hgb Conc 32.9 g/dL (31-36); Mean Corpuscular Volume 88.3 fL (80-97); Mean Platelet Volume 7.4 fL (7.5-11.2); Platelet Count 393 10^3/uL (150-450); Red Blood Count 2.52 10^6/uL (3.63-4.92); Red Cell Distribution Width 14.8 % (12-17); White Blood Count 13.2 10^3/uL (3.8-11.8)
[2023-08-28 06:01] LABS: Calcium 7.4 mg/dL (8.6-10.3); Magnesium 2.4 mg/dL (1.9-2.7); Potassium 4.1 mmol/L (3.5-5.0)
[2023-08-28 06:07] LABS: Creatinine, Serum 0.75 mg/dL (0.51-0.95); eGFR CKD-EPI 81.4 (>60)
[2023-08-28] MEDS: Enoxaparin 40 MG/0.4 ML SYR SUBCUT SCH (09:00)
[2023-08-28 13:01] LABS: PCO2 Arterial 39 mmHg (35-45)
[2023-08-28 13:02] LABS: PO2 Arterial 56 mmHg (80-100)
[2023-08-28] MEDS ORDERED: Furosemide 40 mg/4 ml IV VIAL IV SLOW PU ONE (13:13)
[2023-08-28] MEDS ORDERED: methylPREDNISolone SOD SUCC 125 mg 2 ML VIAL IV ONE (16:00)
[2023-08-28] MEDS: cefTRIAXone 1 gm/50 mL D5W 1 GM/50 ML BAG IV SCH (17:08)
[2023-08-28] MEDS ORDERED: Haloperidol 5 mg/ml SDV IV/IM 5 MG/ML AMP IM PRN (18:02)
[2023-08-28] MEDS ORDERED: Haloperidol 5 mg/ml SDV IV/IM 5 MG/ML AMP IV SLOW PU PRN (19:11)
[2023-08-28] MEDS: Albuterol/Ipratropium NEB.SOL (2.5/0.5 MG) 3 ML NEB.SOLN INH SCH (20:24)
[2023-08-29] MEDS: Morphine 2 MG/ML SYRINGE IV PRN (00:05)
[2023-08-29] MEDS ORDERED: Lorazepam PYXIS KEY PRN (00:08)
[2023-08-29] MEDS ORDERED: LORazepam 2 mg VIAL 1 ml IV PUSH ONE (00:08)
[2023-08-29 04:56] LABS: ABS Lymphocytes 0.4 10^3/uL (1.0-4.8); ABS Monocytes 0.2 10^3/uL (0.0-0.9); ABS Neutrophils 9.7 10^3/uL (1.5-7.6); Lymphocyte % 4.2 %; Mean Corpuscular Hemoglobin 29.6 pg (27-33); Mean Corpuscular Hgb Conc 33.3 g/dL (31-36); Mean Corpuscular Volume 89.1 fL (80-97); Mean Platelet Volume 7.3 fL (7.5-11.2); Platelet Count 450 10^3/uL (150-450); Red Cell Distribution Width 15.1 % (12-17); White Blood Count 10.4 10^3/uL (3.8-11.8)
[2023-08-29 05:18] LABS: Calcium 7.8 mg/dL (8.6-10.3); Creatinine, Serum 0.8 mg/dL (0.51-0.95); Magnesium 2.5 mg/dL (1.9-2.7); Potassium 3.9 mmol/L (3.5-5.0); eGFR CKD-EPI 75.4 (>60)
[2023-08-29] MEDS: Albuterol/Ipratropium NEB.SOL (2.5/0.5 MG) 3 ML NEB.SOLN INH SCH ×2 (07:35→19:34)
[2023-08-29] MEDS ORDERED: Albuterol/Ipratropium NEB.SOL (2.5/0.5 MG) 3 ML NEB.SOLN INH SCH (10:00)
[2023-08-29] MEDS: methylPREDNISolone SOD SUCC 125 mg 2 ML VIAL IV SCH (10:57)
[2023-08-29] MEDS: Enoxaparin 40 MG/0.4 ML SYR SUBCUT SCH (10:57)
[2023-08-29] MEDS: cefTRIAXone 1 gm/50 mL D5W 1 GM/50 ML BAG IV SCH (16:12)
[2023-08-29] MEDS ORDERED: OLANZapine 5 mg TAB *ODT PO PRN (20:16)
[2023-08-30 04:14] LABS: ABS Lymphocytes 0.4 10^3/uL (1.0-4.8); ABS Monocytes 0.9 10^3/uL (0.0-0.9); ABS Nucleated RBC 0.01 10^3/ul; Hematocrit 20.9 % (35-45); Hemoglobin 6.9 g/dL (11.5-14.3); Lymphocyte % 3.5 %; Mean Corpuscular Hemoglobin 29.2 pg (27-33); Mean Corpuscular Hgb Conc 33.2 g/dL (31-36); Mean Corpuscular Volume 87.9 fL (80-97); Mean Platelet Volume 6.9 fL (7.5-11.2); Nucleated Red Blood Cells % 0.1 %/100WBC (0.0-0.8); Platelet Count 532 10^3/uL (150-450); Red Blood Count 2.37 10^6/uL (3.63-4.92); White Blood Count 12.4 10^3/uL (3.8-11.8)
[2023-08-30 04:38] LABS: Calcium 7.6 mg/dL (8.6-10.3); Creatinine, Serum 0.74 mg/dL (0.51-0.95); Magnesium 2.6 mg/dL (1.9-2.7); Potassium 3.9 mmol/L (3.5-5.0); eGFR CKD-EPI 82.8 (>60)
[2023-08-30] MEDS ORDERED: Pantoprazole VIAL 40 MG VIAL IV ONE (05:01)
[2023-08-30] MEDS: Albuterol/Ipratropium NEB.SOL (2.5/0.5 MG) 3 ML NEB.SOLN INH SCH ×2 (07:21→20:31)
[2023-08-30] MEDS: Morphine 2 MG/ML SYRINGE IV PRN ×4 (07:55→20:23)
[2023-08-30] MEDS: methylPREDNISolone SOD SUCC 125 mg 2 ML VIAL IV SCH (09:00)
[2023-08-30] MEDS ORDERED: Dextrose 50% Syringe 50 ml 25 GM/50 ML SYRINGE IV PUSH PRN (09:14)
[2023-08-30 10:55] LABS: Hematocrit 27.6 % (35-45); Hemoglobin 9.4 g/dL (11.5-14.3)
[2023-08-30] MEDS: Enoxaparin 40 MG/0.4 ML SYR SUBCUT SCH (13:17)
[2023-08-30] MEDS: cefTRIAXone 1 gm/50 mL D5W 1 GM/50 ML BAG IV SCH (16:27)
[2023-08-31 04:54] LABS: ABS Lymphocytes 0.7 10^3/uL (1.0-4.8); ABS Monocytes 1.5 10^3/uL (0.0-0.9); ABS Neutrophils 13.5 10^3/uL (1.5-7.6); Hematocrit 29.5 % (35-45); Hemoglobin 9.9 g/dL (11.5-14.3); Lymphocyte % 4.5 %; Mean Corpuscular Hemoglobin 29.5 pg (27-33); Mean Corpuscular Hgb Conc 33.5 g/dL (31-36); Mean Corpuscular Volume 88.1 fL (80-97); Mean Platelet Volume 6.8 fL (7.5-11.2); Platelet Count 598 10^3/uL (150-450); Red Blood Count 3.35 10^6/uL (3.63-4.92); Red Cell Distribution Width 14.9 % (12-17); White Blood Count 15.7 10^3/uL (3.8-11.8)
[2023-08-31 05:12] LABS: Creatinine, Serum 0.7 mg/dL (0.51-0.95); Magnesium 2.6 mg/dL (1.9-2.7); Potassium 4.4 mmol/L (3.5-5.0); eGFR CKD-EPI 88.5 (>60)
[2023-08-31] MEDS: Morphine 2 MG/ML SYRINGE IV PRN ×2 (05:45→10:47)
[2023-08-31] MEDS ORDERED: Magnesium Hydroxide LIQ 30 ML UDC PO PRN (07:23)
[2023-08-31] MEDS: Albuterol/Ipratropium NEB.SOL (2.5/0.5 MG) 3 ML NEB.SOLN INH SCH ×2 (08:24→19:34)
[2023-08-31] MEDS ORDERED: Albuterol/Ipratropium NEB.SOL (2.5/0.5 MG) 3 ML NEB.SOLN INH PRN (08:57)
[2023-08-31] MEDS ORDERED: Pantoprazole VIAL 40 MG VIAL IV SCH (09:00)
[2023-08-31] MEDS: Pantoprazole VIAL 40 MG VIAL IV SCH (09:07)
[2023-08-31] MEDS: Magnesium Hydroxide LIQ 30 ML UDC PO SCH ×2 (09:07→20:51)
[2023-08-31] MEDS: methylPREDNISolone SOD SUCC 125 mg 2 ML VIAL IV SCH (09:07)
[2023-08-31] MEDS: Ondansetron 4 mg VIAL 2 MG/ML 2 ml VIAL IV PRN (10:47)
[2023-08-31] MEDS: Enoxaparin 40 MG/0.4 ML SYR SUBCUT SCH (11:32)
[2023-08-31] MEDS: Polyethylene Glycol 3350 17 GM PACKET PO SCH (16:48)
[2023-08-31] MEDS: cefTRIAXone 1 gm/50 mL D5W 1 GM/50 ML BAG IV SCH (16:57)
[2023-08-31] MEDS: Senna TAB 8.6 mg TAB PO SCH (20:51)
[2023-09-01] MEDS: Morphine 2 MG/ML SYRINGE IV PRN ×3 (05:11→19:50)
[2023-09-01] MEDS: Polyethylene Glycol 3350 17 GM PACKET PO SCH ×2 (05:12→16:38)
[2023-09-01 06:02] LABS: ABS Monocytes 1.3 10^3/uL (0.0-0.9); ABS Neutrophils 11.4 10^3/uL (1.5-7.6); ABS Nucleated RBC 0.01 10^3/ul; Hematocrit 30.3 % (35-45); Hemoglobin 9.8 g/dL (11.5-14.3); Lymphocyte % 7.4 %; Mean Corpuscular Hemoglobin 29.2 pg (27-33); Mean Corpuscular Hgb Conc 32.5 g/dL (31-36); Mean Platelet Volume 6.7 fL (7.5-11.2); Nucleated Red Blood Cells % 0.1 %/100WBC (0.0-0.8); Platelet Count 578 10^3/uL (150-450); Red Blood Count 3.37 10^6/uL (3.63-4.92); Red Cell Distribution Width 15.3 % (12-17); White Blood Count 13.7 10^3/uL (3.8-11.8)
[2023-09-01 06:14] LABS: Calcium 7.9 mg/dL (8.6-10.3); Creatinine, Serum 0.77 mg/dL (0.51-0.95); Magnesium 2.5 mg/dL (1.9-2.7); Potassium 4.5 mmol/L (3.5-5.0); eGFR CKD-EPI 78.9 (>60)
[2023-09-01] MEDS: methylPREDNISolone SOD SUCC 125 mg 2 ML VIAL IV SCH (07:54)
[2023-09-01] MEDS: Albuterol/Ipratropium NEB.SOL (2.5/0.5 MG) 3 ML NEB.SOLN INH SCH ×2 (07:54→20:39)
[2023-09-01] MEDS: Pantoprazole VIAL 40 MG VIAL IV SCH (07:54)
[2023-09-01] MEDS: Magnesium Hydroxide LIQ 30 ML UDC PO SCH ×2 (08:03→21:34)
[2023-09-01] MEDS: Enoxaparin 40 MG/0.4 ML SYR SUBCUT SCH (11:44)
[2023-09-01] MEDS: cefTRIAXone 1 gm/50 mL D5W 1 GM/50 ML BAG IV SCH (16:41)
[2023-09-01] MEDS: Senna TAB 8.6 mg TAB PO SCH (21:34)
[2023-09-02] MEDS: Morphine 2 MG/ML SYRINGE IV PRN ×2 (00:31→15:27)
[2023-09-02] MEDS: Polyethylene Glycol 3350 17 GM PACKET PO SCH ×2 (06:00→14:40)
[2023-09-02 06:04] LABS: ABS Lymphocytes 1.5 10^3/uL (1.0-4.8); ABS Monocytes 1.2 10^3/uL (0.0-0.9); ABS Neutrophils 13.5 10^3/uL (1.5-7.6); ABS Nucleated RBC 0.01 10^3/ul; Eosinophil % 0.2 %; Hematocrit 31.6 % (35-45); Hemoglobin 10.5 g/dL (11.5-14.3); Lymphocyte % 9.1 %; Mean Corpuscular Hemoglobin 29.2 pg (27-33); Mean Corpuscular Hgb Conc 33.1 g/dL (31-36); Mean Corpuscular Volume 88.3 fL (80-97); Mean Platelet Volume 6.7 fL (7.5-11.2); Nucleated Red Blood Cells % 0.1 %/100WBC (0.0-0.8); Platelet Count 636 10^3/uL (150-450); Red Blood Count 3.58 10^6/uL (3.63-4.92); Red Cell Distribution Width 15.3 % (12-17); White Blood Count 16.2 10^3/uL (3.8-11.8)
[2023-09-02 06:26] LABS: Albumin 3.2 g/dL (3.2-5.2); Albumin/Globulin Ratio 1.4 (1-3); Calcium 8.1 mg/dL (8.6-10.3); Creatinine, Serum 0.72 mg/dL (0.51-0.95); Globulin 2.3 g/dL (2-4); Magnesium 2.3 mg/dL (1.9-2.7); Potassium 4.6 mmol/L (3.5-5.0); Total Bilirubin 0.5 mg/dL (0.2-1.0); Total Protein 5.5 g/dL (6.4-8.9); eGFR CKD-EPI 85.5 (>60)
[2023-09-02] MEDS: Albuterol/Ipratropium NEB.SOL (2.5/0.5 MG) 3 ML NEB.SOLN INH SCH ×2 (07:29→18:51)
[2023-09-02] MEDS: Magnesium Hydroxide LIQ 30 ML UDC PO SCH ×2 (07:59→20:47)
[2023-09-02] MEDS: Pantoprazole VIAL 40 MG VIAL IV SCH (08:00)
[2023-09-02] MEDS: methylPREDNISolone SOD SUCC 125 mg 2 ML VIAL IV SCH (08:00)
[2023-09-02] MEDS: Enoxaparin 40 MG/0.4 ML SYR SUBCUT SCH (12:42)
[2023-09-02] MEDS: Senna TAB 8.6 mg TAB PO SCH (20:48)
[2023-09-03 04:57] LABS: Hematocrit 31.4 % (35-45); Hemoglobin 10.3 g/dL (11.5-14.3); Mean Corpuscular Hemoglobin 28.9 pg (27-33); Mean Corpuscular Hgb Conc 32.8 g/dL (31-36); Mean Corpuscular Volume 88.2 fL (80-97); Mean Platelet Volume 6.6 fL (7.5-11.2); Platelet Count 667 10^3/uL (150-450); Red Blood Count 3.56 10^6/uL (3.63-4.92)
[2023-09-03 05:15] LABS: Calcium 8.4 mg/dL (8.6-10.3); Creatinine, Serum 0.68 mg/dL (0.51-0.95); Magnesium 2.1 mg/dL (1.9-2.7); Potassium 4.3 mmol/L (3.5-5.0); eGFR CKD-EPI 89.1 (>60)
[2023-09-03] MEDS: Polyethylene Glycol 3350 17 GM PACKET PO SCH ×2 (06:02→16:34)
[2023-09-03] MEDS: Albuterol/Ipratropium NEB.SOL (2.5/0.5 MG) 3 ML NEB.SOLN INH SCH ×2 (08:10→19:13)
[2023-09-03] MEDS: Pantoprazole VIAL 40 MG VIAL IV SCH (08:18)
[2023-09-03] MEDS: Magnesium Hydroxide LIQ 30 ML UDC PO SCH ×2 (08:19→19:55)
[2023-09-03] MEDS ORDERED: methylPREDNISolone SOD SUCC 40 mg/ml 1 ml VIAL IV SCH (09:00)
[2023-09-03] MEDS: cefTRIAXone 1 gm/50 mL D5W 1 GM/50 ML BAG IV SCH (10:55)
[2023-09-03] MEDS: Enoxaparin 40 MG/0.4 ML SYR SUBCUT SCH (13:06)
[2023-09-03] MEDS: Senna TAB 8.6 mg TAB PO SCH ×2 (19:42→19:55)
[2023-09-03] MEDS ORDERED: OLANZapine IM (NF) 10 MG VIAL IM ONE (21:06)
[2023-09-04] MEDS: Morphine 2 MG/ML SYRINGE IV PRN ×6 (00:58→18:42)
[2023-09-04] MEDS: Polyethylene Glycol 3350 17 GM PACKET PO SCH ×2 (05:21→13:37)
[2023-09-04] MEDS ORDERED: Dexmedetomidine 1,000 MCG in NS 0.9% 250 ml 240 ML IV SCH (07:00)
[2023-09-04] MEDS ORDERED: Albuterol/Ipratropium NEB.SOL (2.5/0.5 MG) 3 ML NEB.SOLN INH PRN (07:35)
[2023-09-04] MEDS: Albuterol/Ipratropium NEB.SOL (2.5/0.5 MG) 3 ML NEB.SOLN INH SCH (07:38)
[2023-09-04] MEDS: Pantoprazole VIAL 40 MG VIAL IV SCH (09:30)
[2023-09-04] MEDS: cefTRIAXone 1 gm/50 mL D5W 1 GM/50 ML BAG IV SCH (09:40)
[2023-09-04] MEDS ORDERED: Furosemide 20 mg/2 ml IV VIAL IV SLOW PU ONE (10:00)
[2023-09-04] MEDS: Magnesium Hydroxide LIQ 30 ML UDC PO SCH ×2 (11:38→22:03)
[2023-09-04] MEDS: Enoxaparin 40 MG/0.4 ML SYR SUBCUT SCH (12:45)
[2023-09-04 15:08] LABS: Urine Appearance Clear; Urine Bilirubin Negative (Negative); Urine Blood Negative (Negative); Urine Color Yellow; Urine Glucose Negative (Negative); Urine Ketones Negative (Negative); Urine Nitrite Negative (Negative); Urine Protein Negative (Negative); Urine Specific Gravity 1.009 (1.002-1.030); Urine Urobilinogen Negative (Negative)
[2023-09-04] MEDS ORDERED: Acetaminophen IV 1 GM/100ML 1,000 MG/100 ML BAG IV PRN (17:45)
[2023-09-04] MEDS ORDERED: Haloperidol 5 mg/ml SDV IV/IM 5 MG/ML AMP IV SLOW PU PRN (18:22)
[2023-09-04] MEDS ORDERED: Lorazepam PYXIS KEY PRN (19:01)
[2023-09-04] MEDS ORDERED: LORazepam 2 mg VIAL 1 ml IM ONE (19:01)
[2023-09-04] MEDS ORDERED: LORazepam 2 mg VIAL 1 ml ONE (19:06)
[2023-09-04] MEDS ORDERED: OLANZapine IM (NF) 10 MG VIAL IM ONE (19:15)
[2023-09-04 21:43] LABS: ABS Lymphocytes 0.7 10^3/uL (1.0-4.8); ABS Monocytes 0.9 10^3/uL (0.0-0.9); ABS Neutrophils 13.6 10^3/uL (1.5-7.6); ABS Nucleated RBC 0.01 10^3/ul; Eosinophil % 0.2 %; Hematocrit 28.5 % (35-45); Hemoglobin 9.5 g/dL (11.5-14.3); Lymphocyte % 4.3 %; Mean Corpuscular Hemoglobin 29.8 pg (27-33); Mean Corpuscular Hgb Conc 33.5 g/dL (31-36); Mean Corpuscular Volume 88.9 fL (80-97); Mean Platelet Volume 7.3 fL (7.5-11.2); Nucleated Red Blood Cells % 0.1 %/100WBC (0.0-0.8); Platelet Count 657 10^3/uL (150-450); Red Blood Count 3.21 10^6/uL (3.63-4.92); Red Cell Distribution Width 14.8 % (12-17); White Blood Count 15.2 10^3/uL (3.8-11.8)
[2023-09-04] MEDS: Senna TAB 8.6 mg TAB PO SCH (22:03)
[2023-09-04 22:15] LABS: ALT 21 U/L (7-52); Albumin 3.1 g/dL (3.2-5.2); Albumin/Globulin Ratio 1.4 (1-3); Alkaline Phosphatase 188 U/L (35-149); Blood Urea Nitrogen 29 mg/dL (6-24); CO2 Carbon Dioxide 27 mmol/L (22-32); Calcium 8.2 mg/dL (8.6-10.3); Chloride 100 mmol/L (101-111); Creatinine, Serum 0.88 mg/dL (0.51-0.95); Globulin 2.2 g/dL (2-4); Glucose 94 mg/dL (70-100); Magnesium 2.3 mg/dL (1.9-2.7); Sodium 136 mmol/L (135-145); Total Bilirubin 0.5 mg/dL (0.2-1.0); Total Protein 5.3 g/dL (6.4-8.9); eGFR CKD-EPI 67.2 (>60)
[2023-09-04 22:21] LABS: Anion Gap 9 mmol/L (2-16)
[2023-09-05] MEDS ORDERED: LORazepam 2 mg VIAL 1 ml IV PUSH ONE (02:35)
[2023-09-05] MEDS ORDERED: Lorazepam PYXIS KEY PRN (02:35)
[2023-09-05 03:27] LABS: Urine Appearance Clear; Urine Bilirubin Negative (Negative); Urine Blood Negative (Negative); Urine Color Yellow; Urine Glucose Negative (Negative); Urine Ketones Negative (Negative); Urine Nitrite Negative (Negative); Urine Protein Negative (Negative); Urine Specific Gravity 1.009 (1.002-1.030); Urine Urobilinogen Negative (Negative)
[2023-09-05 04:39] LABS: ABS Eosinophils 0.1 10^3/uL (0.0-0.5); ABS Lymphocytes 1.4 10^3/uL (1.0-4.8); ABS Monocytes 0.8 10^3/uL (0.0-0.9); ABS Neutrophils 11.5 10^3/uL (1.5-7.6); Hemoglobin 10.2 g/dL (11.5-14.3); Lymphocyte % 10.3 %; Mean Corpuscular Hemoglobin 29.3 pg (27-33); Mean Corpuscular Volume 88.9 fL (80-97); Mean Platelet Volume 6.8 fL (7.5-11.2); Platelet Count 583 10^3/uL (150-450); Red Blood Count 3.49 10^6/uL (3.63-4.92); White Blood Count 13.9 10^3/uL (3.8-11.8)
[2023-09-05 05:40] LABS: ALT 20 U/L (7-52); Albumin 3.1 g/dL (3.2-5.2); Albumin/Globulin Ratio 1.6 (1-3); Alkaline Phosphatase 182 U/L (35-149); Anion Gap 4 mmol/L (2-16); Blood Urea Nitrogen 24 mg/dL (6-24); CO2 Carbon Dioxide 28 mmol/L (22-32); Calcium 8.3 mg/dL (8.6-10.3); Chloride 102 mmol/L (101-111); Creatinine, Serum 0.81 mg/dL (0.51-0.95); Glucose 84 mg/dL (70-100); Magnesium 2.3 mg/dL (1.9-2.7); Sodium 134 mmol/L (135-145); Total Bilirubin 0.5 mg/dL (0.2-1.0); Total Protein 5.1 g/dL (6.4-8.9); eGFR CKD-EPI 74.3 (>60)
[2023-09-05] MEDS: Polyethylene Glycol 3350 17 GM PACKET PO SCH ×2 (06:12→15:19)
[2023-09-05 06:41] LABS: Potassium, Whole Blood 4.6 mmol/L (3.4-4.5)
[2023-09-05] MEDS: Magnesium Hydroxide LIQ 30 ML UDC PO SCH (08:17)
[2023-09-05] MEDS: Enoxaparin 40 MG/0.4 ML SYR SUBCUT SCH (10:42)
[2023-09-05] MEDS: Pantoprazole VIAL 40 MG VIAL IV SCH (10:43)
[2023-09-05] MEDS: cefTRIAXone 1 gm/50 mL D5W 1 GM/50 ML BAG IV SCH (11:17)
[2023-09-05] MEDS ORDERED: OLANZapine IM (NF) 10 MG VIAL IM PRN (18:50)
[2023-09-05] MEDS: Senna TAB 8.6 mg TAB PO SCH (20:09)
[2023-09-06 04:56] LABS: ABS Basophils 0.1 10^3/uL (0.0-0.1); ABS Eosinophils 0.2 10^3/uL (0.0-0.5); ABS Lymphocytes 1.7 10^3/uL (1.0-4.8); ABS Neutrophils 13.7 10^3/uL (1.5-7.6); ABS Nucleated RBC 0.02 10^3/ul; Eosinophil % 1.1 %; Hematocrit 33.2 % (35-45); Lymphocyte % 10.1 %; Mean Corpuscular Hemoglobin 29.5 pg (27-33); Mean Corpuscular Hgb Conc 33.2 g/dL (31-36); Mean Corpuscular Volume 88.8 fL (80-97); Nucleated Red Blood Cells % 0.1 %/100WBC (0.0-0.8); Platelet Count 741 10^3/uL (150-450); Red Blood Count 3.74 10^6/uL (3.63-4.92); Red Cell Distribution Width 14.9 % (12-17); White Blood Count 16.7 10^3/uL (3.8-11.8)
[2023-09-06 05:22] LABS: Potassium 4.4 mmol/L (3.5-5.0)
[2023-09-06 05:24] LABS: Calcium 8.7 mg/dL (8.6-10.3); Creatinine, Serum 0.92 mg/dL (0.51-0.95); Magnesium 2.1 mg/dL (1.9-2.7); eGFR CKD-EPI 63.7 (>60)
[2023-09-06] MEDS: Polyethylene Glycol 3350 17 GM PACKET PO SCH ×2 (05:54→15:33)
[2023-09-06] MEDS: Pantoprazole VIAL 40 MG VIAL IV SCH (08:43)
[2023-09-06] MEDS: Enoxaparin 40 MG/0.4 ML SYR SUBCUT SCH (12:38)
[2023-09-06] MEDS: cefTRIAXone 1 gm/50 mL D5W 1 GM/50 ML BAG IV SCH (12:38)
[2023-09-06] MEDS: Senna TAB 8.6 mg TAB PO SCH (20:41)
[2023-09-06] MEDS: Morphine 2 MG/ML SYRINGE IV PRN (23:25)
[2023-09-07] MEDS: Polyethylene Glycol 3350 17 GM PACKET PO SCH ×2 (06:02→16:19)
[2023-09-07 06:24] LABS: ABS Basophils 0.1 10^3/uL (0.0-0.1); ABS Eosinophils 0.5 10^3/uL (0.0-0.5); ABS Monocytes 0.9 10^3/uL (0.0-0.9); ABS Neutrophils 10.2 10^3/uL (1.5-7.6); ABS Nucleated RBC 0.01 10^3/ul; Eosinophil % 3.5 %; Hematocrit 31.1 % (35-45); Hemoglobin 10.3 g/dL (11.5-14.3); Lymphocyte % 14.3 %; Mean Corpuscular Hemoglobin 29.5 pg (27-33); Mean Corpuscular Hgb Conc 33.1 g/dL (31-36); Mean Corpuscular Volume 89.2 fL (80-97); Nucleated Red Blood Cells % 0.1 %/100WBC (0.0-0.8); Platelet Count 638 10^3/uL (150-450); Red Blood Count 3.49 10^6/uL (3.63-4.92); Red Cell Distribution Width 15.2 % (12-17); White Blood Count 13.6 10^3/uL (3.8-11.8)
[2023-09-07 06:44] LABS: Calcium 8.4 mg/dL (8.6-10.3); Creatinine, Serum 0.9 mg/dL (0.51-0.95); Magnesium 2.1 mg/dL (1.9-2.7); Potassium 4.9 mmol/L (3.5-5.0); eGFR CKD-EPI 65.4 (>60)
[2023-09-07] MEDS: Pantoprazole VIAL 40 MG VIAL IV SCH (09:02)
[2023-09-07] MEDS: cefTRIAXone 1 gm/50 mL D5W 1 GM/50 ML BAG IV SCH (11:21)
[2023-09-07] MEDS: Enoxaparin 40 MG/0.4 ML SYR SUBCUT SCH (12:01)
[2023-09-07 13:31] LABS: C Reactive Protein 11.06 mg/L (<8.01)
[2023-09-07 16:53] LABS: Rapid COVID-19 Molecular Undetected (Undetected)
[2023-09-07] MEDS: Senna TAB 8.6 mg TAB PO SCH (19:55)
[2023-09-08 05:43] LABS: ABS Eosinophils 0.3 10^3/uL (0.0-0.5); ABS Lymphocytes 1.9 10^3/uL (1.0-4.8); ABS Monocytes 0.9 10^3/uL (0.0-0.9); ABS Neutrophils 10.9 10^3/uL (1.5-7.6); Eosinophil % 2.4 %; Hematocrit 30.6 % (35-45); Lymphocyte % 13.3 %; Mean Corpuscular Hemoglobin 29.3 pg (27-33); Mean Corpuscular Hgb Conc 32.8 g/dL (31-36); Mean Corpuscular Volume 89.4 fL (80-97); Mean Platelet Volume 7.1 fL (7.5-11.2); Platelet Count 697 10^3/uL (150-450); Red Blood Count 3.42 10^6/uL (3.63-4.92); Red Cell Distribution Width 15.2 % (12-17); White Blood Count 14.1 10^3/uL (3.8-11.8)
[2023-09-08] MEDS: Polyethylene Glycol 3350 17 GM PACKET PO SCH ×2 (05:48→14:15)
[2023-09-08 06:01] LABS: Calcium 8.3 mg/dL (8.6-10.3); Creatinine, Serum 1.05 mg/dL (0.51-0.95); Magnesium 2.3 mg/dL (1.9-2.7); Potassium 4.4 mmol/L (3.5-5.0); eGFR CKD-EPI 54.4 (>60)
[2023-09-08] MEDS: Pantoprazole VIAL 40 MG VIAL IV SCH (09:47)
[2023-09-08] MEDS: Enoxaparin 40 MG/0.4 ML SYR SUBCUT SCH (11:50)
[2023-09-08] MEDS: Senna TAB 8.6 mg TAB PO SCH (21:17)
[2023-09-09] MEDS: Polyethylene Glycol 3350 17 GM PACKET PO SCH ×2 (05:53→14:43)
[2023-09-09 07:05] LABS: ABS Basophils 0.1 10^3/uL (0.0-0.1); ABS Eosinophils 0.3 10^3/uL (0.0-0.5); ABS Lymphocytes 1.7 10^3/uL (1.0-4.8); ABS Monocytes 1.1 10^3/uL (0.0-0.9); ABS Neutrophils 12.9 10^3/uL (1.5-7.6); Eosinophil % 2.1 %; Hematocrit 32.2 % (35-45); Hemoglobin 10.5 g/dL (11.5-14.3); Lymphocyte % 10.5 %; Mean Corpuscular Hemoglobin 29.4 pg (27-33); Mean Corpuscular Hgb Conc 32.7 g/dL (31-36); Mean Corpuscular Volume 89.9 fL (80-97); Mean Platelet Volume 7.3 fL (7.5-11.2); Platelet Count 661 10^3/uL (150-450); Red Blood Count 3.58 10^6/uL (3.63-4.92); Red Cell Distribution Width 15.3 % (12-17); White Blood Count 16.1 10^3/uL (3.8-11.8)
[2023-09-09 07:21] LABS: Calcium 8.5 mg/dL (8.6-10.3); Creatinine, Serum 0.94 mg/dL (0.51-0.95); Magnesium 2.1 mg/dL (1.9-2.7); Potassium 4.8 mmol/L (3.5-5.0); eGFR CKD-EPI 62.1 (>60)
[2023-09-09] MEDS: Pantoprazole VIAL 40 MG VIAL IV SCH (09:48)
[2023-09-09] MEDS: Enoxaparin 30 MG/0.3 ML SYR SUBCUT SCH (11:15)
[2023-09-09] MEDS: Senna TAB 8.6 mg TAB PO SCH (20:48)
[2023-09-10] MEDS: Polyethylene Glycol 3350 17 GM PACKET PO SCH ×2 (06:38→14:52)
[2023-09-10 08:50] LABS: ABS Basophils 0.1 10^3/uL (0.0-0.1); ABS Eosinophils 0.4 10^3/uL (0.0-0.5); ABS Lymphocytes 1.3 10^3/uL (1.0-4.8); ABS Neutrophils 12.2 10^3/uL (1.5-7.6); ABS Nucleated RBC 0.01 10^3/ul; Eosinophil % 2.5 %; Hematocrit 31.7 % (35-45); Hemoglobin 10.4 g/dL (11.5-14.3); Lymphocyte % 8.8 %; Mean Corpuscular Hemoglobin 29.1 pg (27-33); Mean Corpuscular Hgb Conc 32.7 g/dL (31-36); Mean Platelet Volume 6.8 fL (7.5-11.2); Platelet Count 647 10^3/uL (150-450); Red Blood Count 3.56 10^6/uL (3.63-4.92)
[2023-09-10 09:11] LABS: Calcium 8.3 mg/dL (8.6-10.3); Creatinine, Serum 0.87 mg/dL (0.51-0.95); Potassium 4.2 mmol/L (3.5-5.0); eGFR CKD-EPI 68.2 (>60)
[2023-09-10] MEDS: Pantoprazole VIAL 40 MG VIAL IV SCH (10:48)
[2023-09-10] MEDS: Enoxaparin 30 MG/0.3 ML SYR SUBCUT SCH (13:35)
[2023-09-10] MEDS: Senna TAB 8.6 mg TAB PO SCH (19:36)
[2023-09-11] MEDS: Polyethylene Glycol 3350 17 GM PACKET PO SCH ×2 (05:36→15:47)
[2023-09-11 08:55] LABS: Rapid COVID-19 Molecular Undetected (Undetected)
[2023-09-11] MEDS: Enoxaparin 30 MG/0.3 ML SYR SUBCUT SCH (14:26)
[2023-09-11] MEDS: Senna TAB 8.6 mg TAB PO SCH (20:22)
[2023-09-12] MEDS: Polyethylene Glycol 3350 17 GM PACKET PO SCH (06:08)
[2023-09-12 09:48] VITALS: BP 119/73
== END 2023-09-12 10:15 | DRG 480 ==
LOC: ED 15:38 → SUATTDRO 18:38 → EDHOLD 18:38 → SSU 21:55 → ICU 08-27 14:43 → SSU 09-06 07:46
PROVIDERS: ADMIT Hospitalist; ATTEND Student in an Organized Health Care Education/Training Program

== ENCOUNTER 2024-08-27 10:13 | Inpatient (IN) ==
[2024-08-27 11:25] LABS: Venous Bicarbonate HCO3 18.6 mmol/L (24-28)
[2024-08-27 11:29] LABS: Hemoglobin 14.7 g/dL (11.5-14.3); Mean Corpuscular Hemoglobin 28.9 pg (27-33); Mean Corpuscular Hgb Conc 32.8 g/dL (31-36); Mean Platelet Volume 8.1 fL (7.5-11.2); Platelet Count 495 10^3/uL (150-450); Red Blood Count 5.11 10^6/uL (3.63-4.92); Red Cell Distribution Width 14.9 % (12-17); White Blood Count 14.6 10^3/uL (3.8-11.8)
[2024-08-27 11:37] LABS: INR 1.13 (0.85-1.14)
[2024-08-27] MEDS: NS 0.9% 1000 ml BAG 1,000 ML IV ONE (12:07)
[2024-08-27 12:24] LABS: Albumin 3.4 g/dL (3.2-5.2); Albumin/Globulin Ratio 1.1 (1-3); Calcium 9.3 mg/dL (8.6-10.3); Creatinine, Serum 1.76 mg/dL (0.51-0.95); Potassium 3.8 mmol/L (3.5-5.0); Total Bilirubin 0.6 mg/dL (0.2-1.0); Total Protein 6.4 g/dL (6.4-8.9); eGFR CKD-EPI 29.1 (>60)
[2024-08-27 12:45] LABS: ABS Lymphocytes 0.7 10^3/uL (1.0-4.8); ABS Monocytes 0.6 10^3/uL (0.0-0.9); ABS Neutrophils 13.3 10^3/uL (1.5-7.6); ABS Nucleated RBC 0.01 10^3/ul; Lymphocyte % 4.6 %; Nucleated Red Blood Cells % 0.1 %/100WBC (0.0-0.8)
[2024-08-27 13:11] LABS: High Sensitivity Troponin 1 Hr 29 pg/mL (<15)
[2024-08-27] MEDS: Morphine 2 MG/ML SYRINGE IV ONE (14:03)
[2024-08-27] MEDS: Acetaminophen IV 1 GM/100ML 1,000 MG/100 ML BAG IV ONE (14:03)
[2024-08-27] MEDS: Albuterol 2.5mg/3 ml (0.083%) NEB.SOLN INH ONE (14:20)
[2024-08-27] MEDS: cefTRIAXone 1 gm/50 mL D5W 1 GM/50 ML BAG IV ONE (14:30)
[2024-08-27] MEDS: Lactated Ringers 1000 ml BAG 1,000 ML IV ONE (15:36)
[2024-08-27] MEDS: NS 0.9% 1000 ml BAG 1,000 ML IV SCH ×2 (15:36→17:00)
[2024-08-27 15:59] LABS: C Reactive Protein 347.95 mg/L (<8.01)
[2024-08-27] MEDS ORDERED: guaiFENesin 100 mg/5 ml LIQ unit dose cup PO PRN (16:42)
[2024-08-27] MEDS: Albuterol/Ipratropium NEB.SOL (2.5/0.5 MG) 3 ML NEB.SOLN INH SCH (16:56)
[2024-08-27] MEDS: DOXYcycline 100 MG in NS 0.9% 250 ml 250 ML IVPB ONE (16:59)
[2024-08-27 19:16] LABS: Hematocrit 40.1 % (35-45); Hemoglobin 12.9 g/dL (11.5-14.3); Mean Corpuscular Hemoglobin 28.9 pg (27-33); Mean Corpuscular Hgb Conc 32.2 g/dL (31-36); Mean Corpuscular Volume 89.8 fL (80-97); Mean Platelet Volume 8.1 fL (7.5-11.2); Platelet Count 305 10^3/uL (150-450); Red Blood Count 4.46 10^6/uL (3.63-4.92); Red Cell Distribution Width 14.7 % (12-17); White Blood Count 7.1 10^3/uL (3.8-11.8)
[2024-08-27 19:28] LABS: Activated Partial Thrombo Time 26.2 seconds (26.0-38.0); INR 1.14 (0.85-1.14)
[2024-08-27 19:47] LABS: Creatinine, Serum 1.67 mg/dL (0.51-0.95)
[2024-08-27 20:14] LABS: ABS Lymphocytes 0.5 10^3/uL (1.0-4.8); ABS Monocytes 0.4 10^3/uL (0.0-0.9); ABS Neutrophils 6.2 10^3/uL (1.5-7.6); ABS Nucleated RBC 0.01 10^3/ul; Eosinophil % 0.1 %; Lymphocyte % 7.3 %; Nucleated Red Blood Cells % 0.1 %/100WBC (0.0-0.8)
[2024-08-27] MEDS: Heparin 5000 UNITS/ML 1 mL VIAL SUBCUT SCH (22:24)
[2024-08-28] MEDS: cefTRIAXone 2 gm/50 mL D5W 2 GM/50 ML BAG IV SCH (05:48)
[2024-08-28 07:26] LABS: Hematocrit 36.8 % (35-45); Hemoglobin 11.7 g/dL (11.5-14.3); Mean Corpuscular Hemoglobin 29.6 pg (27-33); Mean Corpuscular Hgb Conc 31.9 g/dL (31-36); Mean Corpuscular Volume 92.6 fL (80-97); Mean Platelet Volume 7.7 fL (7.5-11.2); Platelet Count 274 10^3/uL (150-450); Red Blood Count 3.97 10^6/uL (3.63-4.92); Red Cell Distribution Width 15.8 % (12-17); White Blood Count 8.5 10^3/uL (3.8-11.8)
[2024-08-28 08:18] LABS: Albumin 2.7 g/dL (3.2-5.2); Albumin/Globulin Ratio 1.2 (1-3); Calcium 7.5 mg/dL (8.6-10.3); Creatinine, Serum 1.44 mg/dL (0.51-0.95); Globulin 2.3 g/dL (2-4); Magnesium 1.8 mg/dL (1.9-2.7); Phosphorus 3.2 mg/dL (2.5-5.0); Potassium 3.5 mmol/L (3.5-5.0); Total Bilirubin 0.3 mg/dL (0.2-1.0)
[2024-08-28 10:14] LABS: ABS Lymphocytes 0.6 10^3/uL (1.0-4.8); ABS Monocytes 0.5 10^3/uL (0.0-0.9); ABS Neutrophils 7.4 10^3/uL (1.5-7.6); ABS Nucleated RBC 0.01 10^3/ul; Eosinophil % 0.1 %; Lymphocyte % 7.2 %; Nucleated Red Blood Cells % 0.1 %/100WBC (0.0-0.8)
[2024-08-28] MEDS: Magnesium Sulfate 2 gm BAG 2 GM/50 ML BAG IVPB ONE (10:48)
[2024-08-28] MEDS ORDERED: Morphine 2 MG/ML SYRINGE IV PRN (11:19)
[2024-08-28] MEDS: Lactated Ringers 1000 ml BAG 1,000 ML IV ONE (12:41)
[2024-08-28] MEDS ORDERED: Sulfur Hexaflouride MICROSPHR 25 MG VIAL IV PRN (16:03)
[2024-08-28 16:53] LABS: Calcium 7.9 mg/dL (8.6-10.3); Creatinine, Serum 1.35 mg/dL (0.51-0.95); Potassium 3.2 mmol/L (3.5-5.0)
[2024-08-28] MEDS: Potassium Chloride LIQUID 20 MEQ/15 ML LIQUID PO ONE (20:29)
[2024-08-28] MEDS: Morphine 2 MG/ML SYRINGE IV PRN (23:50)
[2024-08-29] MEDS: Albuterol 2.5mg/3 ml (0.083%) NEB.SOLN INH PRN (01:36)
[2024-08-29] MEDS: Albuterol/Ipratropium NEB.SOL (2.5/0.5 MG) 3 ML NEB.SOLN INH SCH ×3 (06:23→18:37)
[2024-08-29 07:25] LABS: Hematocrit 32.8 % (35-45); Hemoglobin 10.8 g/dL (11.5-14.3); Mean Corpuscular Hemoglobin 29.1 pg (27-33); Mean Corpuscular Hgb Conc 33.1 g/dL (31-36); Mean Corpuscular Volume 87.8 fL (80-97); Mean Platelet Volume 8.4 fL (7.5-11.2); Platelet Count 348 10^3/uL (150-450); Red Blood Count 3.73 10^6/uL (3.63-4.92); Red Cell Distribution Width 14.9 % (12-17); White Blood Count 18.6 10^3/uL (3.8-11.8)
[2024-08-29 07:48] LABS: Calcium 8.2 mg/dL (8.6-10.3); Creatinine, Serum 1.24 mg/dL (0.51-0.95); Magnesium 2.5 mg/dL (1.9-2.7); Potassium 3.3 mmol/L (3.5-5.0); eGFR CKD-EPI 44.3 (>60)
[2024-08-29] MEDS ORDERED: LORazepam 2 mg VIAL 1 ml IV PUSH PRN (07:55)
[2024-08-29] MEDS ORDERED: Lorazepam PYXIS KEY PRN (07:55)
[2024-08-29] MEDS: KCL 20 MEQ/100 ML IVPREMIX 20 MEQ/100 ML BAG IV SCH (08:09)
[2024-08-29] MEDS: Potassium Chlor 20 meq TAB.ER PO ONE (08:10)
[2024-08-29 08:33] LABS: TSH Ultra Thyroid Stim Horm 0.16 mcIU/mL (0.34-5.60)
[2024-08-29] MEDS: Magnesium Sulfate 2 gm BAG 2 GM/50 ML BAG IVPB ONE (08:37)
[2024-08-29 09:34] LABS: ABS Lymphocytes 0.9 10^3/uL (1.0-4.8); ABS Neutrophils 16.7 10^3/uL (1.5-7.6); ABS Nucleated RBC 0.03 10^3/ul; Eosinophil % 0.1 %; Lymphocyte % 4.9 %; Nucleated Red Blood Cells % 0.1 %/100WBC (0.0-0.8); RBC Morphology Normal (Normal)
[2024-08-29 10:39] LABS: PCO2 Arterial 33 mmHg (35-45)
[2024-08-29 10:46] LABS: PO2 Arterial 54 mmHg (80-100)
[2024-08-29] MEDS ORDERED: Zosyn per Pharmacy NOTE FOLLOW UP SCH (11:00)
[2024-08-29] MEDS: ZOSYN 3.375 GM x ONE DOSE over 30 miuntes IV (11:15)
[2024-08-29] MEDS: Furosemide 20 mg/2 ml IV VIAL IV ONE (11:15)
[2024-08-29] MEDS: Piperacillin/Tazobac 3.375 BAG 3.375 GM/100 ML BAG IV SCH (15:27)
[2024-08-29] MEDS: methylPREDNISolone SOD SUCC 40 mg/ml 1 ml VIAL IV SCH (15:27)
[2024-08-29] MEDS: Senna TAB 8.6 mg TAB PO SCH (15:27)
[2024-08-29] MEDS: Lidocaine PATCH 5% PATCH TRANSDERM SCH (17:13)
[2024-08-29] MEDS: Polyethylene Glycol 3350 17 GM PACKET PO SCH (20:08)
[2024-08-29 21:00] LABS: Urine Appearance Clear; Urine Bilirubin Negative (Negative); Urine Blood Negative (Negative); Urine Color Colorless; Urine Glucose Negative (Negative); Urine Ketones Negative (Negative); Urine Nitrite Negative (Negative); Urine Protein Negative (Negative); Urine Specific Gravity 1.012 (1.002-1.030); Urine Urobilinogen Negative (Negative)
[2024-08-29] MEDS: Ondansetron 4 mg VIAL 2 MG/ML 2 ml VIAL IV PRN (23:52)
[2024-08-30] MEDS: Ondansetron 4 mg VIAL 2 MG/ML 2 ml VIAL ONE (00:11)
[2024-08-30 05:11] LABS: Hematocrit 32.4 % (35-45); Hemoglobin 10.5 g/dL (11.5-14.3); Mean Corpuscular Hemoglobin 28.4 pg (27-33); Mean Corpuscular Hgb Conc 32.6 g/dL (31-36); Mean Corpuscular Volume 87.2 fL (80-97); Mean Platelet Volume 8.1 fL (7.5-11.2); Platelet Count 365 10^3/uL (150-450); Red Blood Count 3.71 10^6/uL (3.63-4.92); Red Cell Distribution Width 15.2 % (12-17); White Blood Count 22.5 10^3/uL (3.8-11.8)
[2024-08-30 05:16] LABS: Potassium 3.9 mmol/L (3.5-5.0)
[2024-08-30 05:17] LABS: Calcium 8.3 mg/dL (8.6-10.3); Creatinine, Serum 1.28 mg/dL (0.51-0.95); eGFR CKD-EPI 42.6 (>60)
[2024-08-30 06:12] LABS: ABS Lymphocytes 0.8 10^3/uL (1.0-4.8); ABS Monocytes 0.2 10^3/uL (0.0-0.9); ABS Neutrophils 21.4 10^3/uL (1.5-7.6); ABS Nucleated RBC 0.02 10^3/ul; Lymphocyte % 3.7 %; Nucleated Red Blood Cells % 0.1 %/100WBC (0.0-0.8); RBC Morphology Normal (Normal)
[2024-08-30] MEDS: Senna TAB 8.6 mg TAB PO ONE (09:49)
[2024-08-30] MEDS ORDERED: Lorazepam PYXIS KEY PRN (22:28)
[2024-08-30] MEDS: LORazepam 2 mg VIAL 1 ml IV PUSH ONE (23:08)
[2024-08-31] MEDS ORDERED: Lorazepam PYXIS KEY PRN (03:06)
[2024-08-31] MEDS: LORazepam 2 mg VIAL 1 ml IV PUSH ONE (03:27)
[2024-08-31 05:35] LABS: Calcium 8.6 mg/dL (8.6-10.3); Creatinine, Serum 1.26 mg/dL (0.51-0.95); Potassium 3.3 mmol/L (3.5-5.0); eGFR CKD-EPI 43.4 (>60)
[2024-08-31 07:28] LABS: Hematocrit 28.4 % (35-45); Hemoglobin 9.4 g/dL (11.5-14.3); Mean Corpuscular Hgb Conc 33.1 g/dL (31-36); Mean Corpuscular Volume 87.5 fL (80-97); Mean Platelet Volume 8.4 fL (7.5-11.2); Platelet Count 317 10^3/uL (150-450); Red Blood Count 3.24 10^6/uL (3.63-4.92); Red Cell Distribution Width 15.3 % (12-17); White Blood Count 20.7 10^3/uL (3.8-11.8)
[2024-08-31] MEDS: Senna TAB 8.6 mg TAB PO SCH ×2 (09:15→10:43)
[2024-08-31] MEDS: Potassium Chlor 20 meq TAB.ER PO SCH (09:33)
[2024-08-31 09:43] LABS: ABS Lymphocytes 0.9 10^3/uL (1.0-4.8); ABS Monocytes 0.6 10^3/uL (0.0-0.9); ABS Neutrophils 19.1 10^3/uL (1.5-7.6); ABS Nucleated RBC 0.02 10^3/ul; Lymphocyte % 4.4 %; Nucleated Red Blood Cells % 0.1 %/100WBC (0.0-0.8)
[2024-09-01 06:16] LABS: Hematocrit 31.1 % (35-45); Hemoglobin 10.3 g/dL (11.5-14.3); Mean Corpuscular Hemoglobin 28.9 pg (27-33); Mean Corpuscular Hgb Conc 33.1 g/dL (31-36); Mean Corpuscular Volume 87.1 fL (80-97); Mean Platelet Volume 7.6 fL (7.5-11.2); Platelet Count 334 10^3/uL (150-450); Red Blood Count 3.57 10^6/uL (3.63-4.92); Red Cell Distribution Width 15.3 % (12-17); White Blood Count 23.1 10^3/uL (3.8-11.8)
[2024-09-01 06:31] LABS: Albumin 2.6 g/dL (3.2-5.2); Albumin/Globulin Ratio 1.1 (1-3); Calcium 8.9 mg/dL (8.6-10.3); Creatinine, Serum 1.34 mg/dL (0.51-0.95); Globulin 2.3 g/dL (2-4); Magnesium 2.1 mg/dL (1.9-2.7); Phosphorus 3.6 mg/dL (2.5-5.0); Potassium 4.3 mmol/L (3.5-5.0); Total Bilirubin 0.5 mg/dL (0.2-1.0); Total Protein 4.9 g/dL (6.4-8.9); eGFR CKD-EPI 40.3 (>60)
[2024-09-01 07:28] LABS: ABS Monocytes 0.2 10^3/uL (0.0-0.9); ABS Neutrophils 21.9 10^3/uL (1.5-7.6); Lymphocyte % 4.1 %
[2024-09-01] MEDS ORDERED: Sulfur Hexaflouride MICROSPHR 25 MG VIAL IV PRN (09:55)
[2024-09-01] MEDS: ceFAZolin 1 GM in Dextrose 1 GM/50 ML BAG IVPB SCH ×2 (11:34→19:45)
[2024-09-01] MEDS ORDERED: methylPREDNISolone SOD SUCC 40 mg/ml 1 ml VIAL IV SCH (19:30)
[2024-09-02 04:09] LABS: Hematocrit 35.1 % (35-45); Hemoglobin 11.3 g/dL (11.5-14.3); Mean Corpuscular Hgb Conc 32.2 g/dL (31-36); Mean Platelet Volume 7.4 fL (7.5-11.2); Platelet Count 374 10^3/uL (150-450); Red Blood Count 4.04 10^6/uL (3.63-4.92); Red Cell Distribution Width 15.3 % (12-17); White Blood Count 35.3 10^3/uL (3.8-11.8)
[2024-09-02 04:18] LABS: Calcium 8.9 mg/dL (8.6-10.3); Creatinine, Serum 1.12 mg/dL (0.51-0.95); Phosphorus 3.2 mg/dL (2.5-5.0); Potassium 3.9 mmol/L (3.5-5.0)
[2024-09-02 04:30] LABS: ABS Lymphocytes 1.8 10^3/uL (1.0-4.8); ABS Monocytes 0.7 10^3/uL (0.0-0.9); ABS Neutrophils 32.7 10^3/uL (1.5-7.6); ABS Nucleated RBC 0.02 10^3/ul; Hypersegmented Neutrophils Present; Lymphocyte % 5.1 %; RBC Morphology Normal (Normal)
[2024-09-02] MEDS: methylPREDNISolone SOD SUCC 40 mg/ml 1 ml VIAL IV SCH (09:07)
[2024-09-02] MEDS: metroNIDAZOLE IV 500 MG/100ML 500 MG/100 ML BAG IVPB SCH (10:44)
[2024-09-02] MEDS: ceFAZolin 2 GM PREMIX 2 GM/50 ML BAG IV SCH ×2 (13:38→22:26)
[2024-09-03] MEDS ORDERED: Zosyn per Pharmacy NOTE FOLLOW UP SCH (21:00)
[2024-09-03] MEDS: Piperacillin/Tazobac 3.375 BAG 3.375 GM/100 ML BAG IV ONE (22:10)
[2024-09-04] MEDS: ZOSYN 3.375 GM Q8H per EXTENDED INFUSION IV SCH (02:04)
[2024-09-04 06:21] LABS: Hematocrit 34.4 % (35-45); Hemoglobin 11.3 g/dL (11.5-14.3); Mean Corpuscular Hemoglobin 28.2 pg (27-33); Mean Corpuscular Hgb Conc 32.7 g/dL (31-36); Mean Corpuscular Volume 86.2 fL (80-97); Mean Platelet Volume 7.7 fL (7.5-11.2); Platelet Count 318 10^3/uL (150-450); Red Blood Count 3.99 10^6/uL (3.63-4.92); Red Cell Distribution Width 15.3 % (12-17); White Blood Count 30.6 10^3/uL (3.8-11.8)
[2024-09-04 07:17] LABS: Creatinine, Serum 0.77 mg/dL (0.51-0.95); Potassium 3.7 mmol/L (3.5-5.0); eGFR CKD-EPI 78.4 (>60)
[2024-09-04] MEDS ORDERED: fentaNYL 100 mcg/2 ml 50 MCG/ML VIAL ONE (13:28)
[2024-09-04] MEDS ORDERED: Naloxone 0.4 mg VIAL 0.4 mg/ml 1 ml VIAL ONE (13:28)
[2024-09-04] MEDS ORDERED: Flumazenil 0.5 mg/5 ml 0.1 MG/ML 5 ml VIAL ONE (13:28)
[2024-09-04] MEDS ORDERED: Midazolam 5 mg/5 ml VIAL 1 mg/ml 5 ml VIAL (5 mg) ONE (13:29)
[2024-09-04] MEDS: Lactated Ringers 1000 ml BAG 1,000 ML IV SCH (17:08)
[2024-09-04] MEDS: ceFAZolin 2 GM PREMIX 2 GM/50 ML BAG IV SCH (18:17)
[2024-09-05 07:04] LABS: Calcium 8.2 mg/dL (8.6-10.3); Creatinine, Serum 0.7 mg/dL (0.51-0.95); Magnesium 1.7 mg/dL (1.9-2.7); Potassium 3.9 mmol/L (3.5-5.0); eGFR CKD-EPI 87.9 (>60)
[2024-09-05 07:07] LABS: Hematocrit 34.3 % (35-45); Hemoglobin 11.2 g/dL (11.5-14.3); Mean Corpuscular Hemoglobin 28.4 pg (27-33); Mean Corpuscular Hgb Conc 32.8 g/dL (31-36); Mean Corpuscular Volume 86.7 fL (80-97); Mean Platelet Volume 8.2 fL (7.5-11.2); Platelet Count 374 10^3/uL (150-450); Red Blood Count 3.96 10^6/uL (3.63-4.92); Red Cell Distribution Width 15.2 % (12-17); White Blood Count 33.4 10^3/uL (3.8-11.8)
[2024-09-05 07:13] LABS: ABS Lymphocytes 1.2 10^3/uL (1.0-4.8); ABS Monocytes 0.4 10^3/uL (0.0-0.9); ABS Neutrophils 31.8 10^3/uL (1.5-7.6); Eosinophil % 0.1 %; Lymphocyte % 3.5 %
[2024-09-05 10:08] LABS: C Reactive Protein 68.54 mg/L (<8.01)
[2024-09-05] MEDS: Albuterol/Ipratropium NEB.SOL (2.5/0.5 MG) 3 ML NEB.SOLN INH PRN (10:22)
[2024-09-05] MEDS: Magnesium Sulfate 2 gm BAG 2 GM/50 ML BAG IVPB ONE (10:42)
[2024-09-05] MEDS ORDERED: Lidocaine 1% MPF 2 ML VIAL ONE (12:00)
[2024-09-05] MEDS ORDERED: Glycopyrrolate IV 0.2 MG/ML 1 ML VIAL ONE (12:00)
[2024-09-05] MEDS ORDERED: Propofol 10 MG/ML 20 ML BTL ONE (12:00)
[2024-09-05] MEDS ORDERED: Flumazenil 0.5 mg/5 ml 0.1 MG/ML 5 ml VIAL ONE (13:16)
[2024-09-05] MEDS ORDERED: Midazolam 5 mg/5 ml VIAL 1 mg/ml 5 ml VIAL (5 mg) ONE ×2 (13:16→14:51)
[2024-09-05] MEDS ORDERED: fentaNYL 100 mcg/2 ml 50 MCG/ML VIAL ONE (13:16)
[2024-09-05] MEDS ORDERED: Naloxone 0.4 mg VIAL 0.4 mg/ml 1 ml VIAL ONE (13:16)
[2024-09-05] MEDS ORDERED: Lidocaine 2% (CARDIAC or IV) 20 MG/ML 5 ML SYRINGE (100 MG) ONE (14:51)
[2024-09-06 06:27] LABS: Hematocrit 33.4 % (35-45); Hemoglobin 10.6 g/dL (11.5-14.3); Mean Corpuscular Hemoglobin 27.4 pg (27-33); Mean Corpuscular Hgb Conc 31.6 g/dL (31-36); Mean Corpuscular Volume 86.8 fL (80-97); Mean Platelet Volume 7.8 fL (7.5-11.2); Platelet Count 437 10^3/uL (150-450); Red Blood Count 3.86 10^6/uL (3.63-4.92); Red Cell Distribution Width 15.2 % (12-17); White Blood Count 19.7 10^3/uL (3.8-11.8)
[2024-09-06 06:55] LABS: Calcium 8.2 mg/dL (8.6-10.3); Creatinine, Serum 0.7 mg/dL (0.51-0.95); Magnesium 2.1 mg/dL (1.9-2.7); Potassium 4.3 mmol/L (3.5-5.0); eGFR CKD-EPI 87.9 (>60)
[2024-09-06 07:32] LABS: ABS Lymphocytes 0.9 10^3/uL (1.0-4.8); ABS Monocytes 0.9 10^3/uL (0.0-0.9); ABS Neutrophils 17.8 10^3/uL (1.5-7.6); ABS Nucleated RBC 0.01 10^3/ul; Eosinophil % 0.1 %; Lymphocyte % 4.8 %; Nucleated Red Blood Cells % 0.1 %/100WBC (0.0-0.8)
[2024-09-07 06:33] LABS: ABS Lymphocytes 1.1 10^3/uL (1.0-4.8); ABS Monocytes 0.9 10^3/uL (0.0-0.9); ABS Neutrophils 14.9 10^3/uL (1.5-7.6); Hematocrit 29.9 % (35-45); Hemoglobin 9.7 g/dL (11.5-14.3); Lymphocyte % 6.5 %; Mean Corpuscular Hemoglobin 28.3 pg (27-33); Mean Corpuscular Hgb Conc 32.4 g/dL (31-36); Mean Corpuscular Volume 87.4 fL (80-97); Mean Platelet Volume 7.8 fL (7.5-11.2); Platelet Count 439 10^3/uL (150-450); Red Blood Count 3.42 10^6/uL (3.63-4.92); Red Cell Distribution Width 15.1 % (12-17); White Blood Count 16.9 10^3/uL (3.8-11.8)
[2024-09-07 07:00] LABS: Calcium 7.8 mg/dL (8.6-10.3); Creatinine, Serum 0.68 mg/dL (0.51-0.95); Potassium 4.3 mmol/L (3.5-5.0); eGFR CKD-EPI 88.5 (>60)
[2024-09-08 06:55] LABS: ABS Lymphocytes 1.2 10^3/uL (1.0-4.8); ABS Monocytes 1.1 10^3/uL (0.0-0.9); ABS Neutrophils 16.4 10^3/uL (1.5-7.6); Hematocrit 29.2 % (35-45); Hemoglobin 9.7 g/dL (11.5-14.3); Lymphocyte % 6.4 %; Mean Corpuscular Hemoglobin 28.9 pg (27-33); Mean Corpuscular Hgb Conc 33.1 g/dL (31-36); Mean Corpuscular Volume 87.2 fL (80-97); Mean Platelet Volume 7.6 fL (7.5-11.2); Platelet Count 528 10^3/uL (150-450); Red Blood Count 3.35 10^6/uL (3.63-4.92); Red Cell Distribution Width 15.3 % (12-17); White Blood Count 18.7 10^3/uL (3.8-11.8)
[2024-09-08 07:12] LABS: Calcium 7.8 mg/dL (8.6-10.3); Creatinine, Serum 0.7 mg/dL (0.51-0.95); Magnesium 1.6 mg/dL (1.9-2.7); Potassium 4.6 mmol/L (3.5-5.0); eGFR CKD-EPI 87.9 (>60)
[2024-09-08] MEDS: Magnesium Sulfate 2 gm BAG 2 GM/50 ML BAG IVPB ONE (12:41)
[2024-09-08 12:46] LABS: C Reactive Protein 11.09 mg/L (<8.01)
[2024-09-09 06:05] LABS: Hematocrit 29.6 % (35-45); Hemoglobin 9.9 g/dL (11.5-14.3); Mean Corpuscular Hemoglobin 29.1 pg (27-33); Mean Corpuscular Hgb Conc 33.4 g/dL (31-36); Mean Corpuscular Volume 87.1 fL (80-97); Mean Platelet Volume 7.3 fL (7.5-11.2); Platelet Count 596 10^3/uL (150-450); Red Cell Distribution Width 15.1 % (12-17); White Blood Count 16.6 10^3/uL (3.8-11.8)
[2024-09-09 06:59] LABS: Calcium 8.1 mg/dL (8.6-10.3); Creatinine, Serum 0.7 mg/dL (0.51-0.95); Magnesium 1.7 mg/dL (1.9-2.7); eGFR CKD-EPI 87.9 (>60)
[2024-09-09] MEDS: Magnesium Sulfate 2 gm BAG 2 GM/50 ML BAG IVPB ONE (07:53)
[2024-09-09] MEDS ORDERED: Polyethylene Glycol 3350 17 GM PACKET PO PRN (11:55)
[2024-09-09] MEDS ORDERED: Senna TAB 8.6 mg TAB PO PRN (11:56)
[2024-09-10 06:50] LABS: ABS Lymphocytes 1.5 10^3/uL (1.0-4.8); ABS Monocytes 1.3 10^3/uL (0.0-0.9); ABS Neutrophils 13.7 10^3/uL (1.5-7.6); Eosinophil % 0.2 %; Hematocrit 28.2 % (35-45); Hemoglobin 9.3 g/dL (11.5-14.3); Lymphocyte % 8.9 %; Mean Corpuscular Hemoglobin 28.6 pg (27-33); Mean Corpuscular Hgb Conc 32.9 g/dL (31-36); Mean Corpuscular Volume 86.9 fL (80-97); Mean Platelet Volume 7.2 fL (7.5-11.2); Platelet Count 643 10^3/uL (150-450); Red Blood Count 3.24 10^6/uL (3.63-4.92); Red Cell Distribution Width 15.1 % (12-17); White Blood Count 16.5 10^3/uL (3.8-11.8)
[2024-09-10 07:10] LABS: Magnesium 1.9 mg/dL (1.9-2.7)
[2024-09-10 07:52] LABS: Albumin 2.4 g/dL (3.2-5.2); Albumin/Globulin Ratio 1.2 (1-3); Direct Bilirubin 0.1 mg/dL (0.03-0.18); Indirect Bilirubin 0.2 mg/dL (0.3-1.0); Total Bilirubin 0.3 mg/dL (0.2-1.0); Total Protein 4.4 g/dL (6.4-8.9)
[2024-09-10 08:11] LABS: Ferritin 151.3 ng/mL (11-307)
[2024-09-10 09:15] LABS: Creatinine, Serum 0.74 mg/dL (0.51-0.95); Potassium 4.9 mmol/L (3.5-5.0); eGFR CKD-EPI 82.2 (>60)
[2024-09-11 08:17] LABS: Hematocrit 30.7 % (35-45); Hemoglobin 10.1 g/dL (11.5-14.3); Mean Corpuscular Volume 87.9 fL (80-97); Mean Platelet Volume 6.9 fL (7.5-11.2); Platelet Count 753 10^3/uL (150-450); Red Blood Count 3.49 10^6/uL (3.63-4.92); Red Cell Distribution Width 15.5 % (12-17); White Blood Count 19.4 10^3/uL (3.8-11.8)
[2024-09-11 08:34] LABS: Calcium 8.5 mg/dL (8.6-10.3); Creatinine, Serum 0.62 mg/dL (0.51-0.95); Magnesium 1.8 mg/dL (1.9-2.7); Potassium 4.7 mmol/L (3.5-5.0); eGFR CKD-EPI 90.5 (>60)
[2024-09-11 08:58] LABS: ABS Basophils 0.1 10^3/uL (0.0-0.1); ABS Lymphocytes 1.7 10^3/uL (1.0-4.8); ABS Monocytes 1.3 10^3/uL (0.0-0.9); ABS Neutrophils 16.3 10^3/uL (1.5-7.6); Eosinophil % 0.2 %; Lymphocyte % 8.8 %
[2024-09-11] MEDS: Magnesium Sulfate 2 gm BAG 2 GM/50 ML BAG IVPB ONE (10:32)
[2024-09-11 16:21] LABS: Rapid COVID-19 Molecular Undetected (Undetected)
[2024-09-11] MEDS: Polyethylene Glycol 3350 17 GM PACKET PO SCH (20:55)
[2024-09-12 07:37] LABS: ABS Eosinophils 0.1 10^3/uL (0.0-0.5); ABS Lymphocytes 0.9 10^3/uL (1.0-4.8); ABS Monocytes 1.1 10^3/uL (0.0-0.9); ABS Neutrophils 16.6 10^3/uL (1.5-7.6); Eosinophil % 0.5 %; Lymphocyte % 4.9 %; Mean Corpuscular Hemoglobin 29.3 pg (27-33); Mean Corpuscular Hgb Conc 33.5 g/dL (31-36); Mean Corpuscular Volume 87.5 fL (80-97); Mean Platelet Volume 6.7 fL (7.5-11.2); Platelet Count 700 10^3/uL (150-450); Red Blood Count 3.42 10^6/uL (3.63-4.92); Red Cell Distribution Width 15.7 % (12-17); White Blood Count 18.8 10^3/uL (3.8-11.8)
[2024-09-12 07:53] LABS: Calcium 7.9 mg/dL (8.6-10.3); Creatinine, Serum 0.64 mg/dL (0.51-0.95); Magnesium 1.9 mg/dL (1.9-2.7); Potassium 4.8 mmol/L (3.5-5.0); eGFR CKD-EPI 89.8 (>60)
[2024-09-12 09:39] VITALS: BP 135/54
== END 2024-09-12 12:45 | disposition swing bed (61) | DRG 871 ==
LOC: ED 10:13 → EDHOLD 10:13 → SUATTDRO 14:59 → MED 16:12 → SUATTDRO 08-29 10:09 → ICU 08-29 16:03 → MEDTELE 09-02 12:51 → MED 09-08 18:45
PROVIDERS: ADMIT Student in an Organized Health Care Education/Training Program; ATTEND Internal Medicine